=== PATIENT | male | born 1960 ===

== ENCOUNTER 2017-02-21 10:35 | Inpatient (IN) | payer MEDICAID, SELFPAY ==
--- NOTE | 2017-02-21 10:59 | ED PDOC ---
Arrival/HPI - General Time Seen by Provider: 02/21/17 10:55 Historian: Patient - History of Present Illness Narrative History of Present Illness (Text): 02/21/17 10:56 56 y/o male, pmh including dm, nkda, Last tetanus over 10 years ago, c/o rt. knee pain and swelling with redness x 3 days. Pt. stated that he tripped and fall about 3 days ago, sustained abrasion on the anterior knee, noted to have redness and swelling today, able to walk to the ER and painful rt. knee skin, no fever or chills, no night sweat, no chills, no dizziness, no chest pain or shortness of breath, no change in vision, no other medical or psychological complaints. Past Medical History - Provider Review Nursing Documentation Reviewed: Yes Family/Social History - Physician Review Nursing Documentation Reviewed: Yes Family/Social History: Unknown Family HX Allergies/Home Meds Allergies/Adverse Reactions: Allergies No Known Allergies Allergy (Verified 02/21/17 10:56) Home Medications: Home Meds Medication Instructions Recorded Confirmed Insulin Glargine,Hum.rec.anlog 20 unit SQ DAILY 02/21/17 02/21/17 [Ирина Phan U-100] Review of Systems - Review of Systems Constitutional: absent: Fatigue, Fevers Eyes: absent: Vision Changes ENT: absent: Hearing Changes Respiratory: absent: SOB, Cough Cardiovascular: absent: Chest Pain Gastrointestinal: absent: Abdominal Pain, Nausea, Vomiting Musculoskeletal: Arthralgias, Joint Swelling. absent: Back Pain, Neck Pain, Myalgias Skin: Rash, Cellulitis. absent: Pruritis Neurological: absent: Headache, Dizziness Psychiatric: absent: Anxiety, Depression Physical Exam Vital Signs Reviewed: Yes Vital Signs Temp Pulse Resp BP Pulse Ox 02/21/17 13:50 98 H 18 146/77 98 02/21/17 10:41 98.4 F 97 H 19 151/79 H 100 Temperature: Afebrile Blood Pressure: Hypertensive Pulse: Regular Respiratory Rate: Normal Appearance: Positive for: Well-Appearing, Non-Toxic, Comfortable Pain Distress: Moderate Mental Status: Positive for: Alert and Oriented X 3 - Systems Exam Head: Present: Atraumatic, Normocephalic Pupils: Present: PERRL Extroacular Muscles: Present: EOMI Conjunctiva: Present: Normal Mouth: Present: Moist Mucous Membranes Neck: Present: Normal Range of Motion Respiratory/Chest: Present: Clear to Auscultation, Good Air Exchange. No: Respiratory Distress, Accessory Muscle Use Cardiovascular: Present: Regular Rate and Rhythm, Normal S1, S2. No: Murmurs Abdomen: Present: Normal Bowel Sounds. No: Tenderness, Distention, Peritoneal Signs Back: Present: Normal Inspection Upper Extremity: Present: Normal Inspection. No: Cyanosis, Edema Lower Extremity: Present: Normal Inspection, Other (Rt. knee: visible scab ulcerated noted on the anterior knee approx. 2cm diameter with the cellulitis noted on the lateral and inferior aspect of the knee, no deformity, active range of movement, no joint limitation, no fluctuant abscess, able to visual the bony structure with no effusion, sensation intact, motor 5/5, +DPPT pulsese , capillary refill< 2 seconds, negative peace and bone sign, neurovascular intact. ). No: Edema Neurological: Present: GCS=15, Speech Normal, Motor Func Grossly Intact, Memory Normal Skin: Present: Warm, Dry, Normal Color. No: Rashes Psychiatric: Present: Alert, Oriented x 3, Normal Insight, Normal Concentration Medical Decision Making ED Course and Treatment: 02/21/17 10:59 Differrential: rt. knee cellulitis vs. gout vs. arthritis -labs/blood/urine and wound culture -rt. knee xray -RLE venuous doppler -IVF/vancomycin/zosyn/toradol/Tdap -No emergent knee rt tap indicated in the ER as per Dr. Berrios and examined the patient together, agreed on the treatment and admission plan. -Observe and reassess 02/21/17 12:58 -EKG: NSR @ 98 BPM, no ST elevation or depression, no T wave inversion. -RLE Venuous doppler: as per preliminary report, no acute DVT -Rt. knee xray: no fracture/dislocation/osteolytic changes, vascular calcification noted. -Labs are non-significant except glucose 308 (IVF ordered), Lactic acid 2.2 ( not code sepsis criteria) -Pt. will need admission for inpatient IV antiobiotic due to the extensive of the cellulitis. -Hopitalist paged. 02/21/17 13:06 -I spoke to Dr. Rabago, discussed about the case/labs/radiology results, agreed on the admission for inpatient antibiotics. -I discussed with Dr. Berrios, he will put in the admission order. - Lab Interpretations Microbiology Results: Microbiology Results 02/21/17 11:10 Skin - Knee Gram Stain - Final Lab Results: 02/21/17 11:10 02/21/17 11:10 Lab Results 02/21/17 11:10: pO2 27 L, VBG pH 7.33, VBG pCO2 53.0, VBG HCO3 27.9, VBG Total CO2 29.5 H, VBG O2 Sat (Calc) 55.0, VBG Base Excess 1.0, VBG Potassium 3.9, Sodium 139.0, Chloride 103.0, Glucose 308 H, Lactate 2.2 H, FiO2 21.0, Venous Blood Potassium 3.9 02/21/17 11:10: WBC 10.7, RBC 4.07, Hgb 11.7 L, Hct 35.0 L, MCV 86.0, MCH 28.7, MCHC 33.4, RDW 13.6, Plt Count 339, MPV 11.2 H, Gran % 73.2 H, Lymph % (Auto) 18.4 L, [place] % (Auto) 7.4 H, Eos % (Auto) 0.8 L, Baso % (Auto) 0.2, Gran # 7.81 H, Lymph # 2.0, [place] # 0.8 H, Eos # 0.1, Baso # 0.02, ESR 70 H 02/21/17 11:10: C-React Prot High Sens > 15.00 H 02/21/17 11:10: Sodium 139, Chloride 102, Potassium 3.9, Carbon Dioxide 27, Anion Gap 14, BUN 12, Creatinine 0.6 L, Est GFR ( Amer) > 60, Est GFR ( Non-Af Amer) > 60, Random Glucose 308 H*, Uric Acid 2.6 L, Calcium 9.3, Magnesium 2.0, Total Bilirubin 0.6, AST 35, ALT 31, Alkaline Phosphatase 259 H, Total Protein 8.1, Albumin 3.9, Globulin 4.2, Albumin/Globulin Ratio 0.9 L 02/21/17 10:48: POC Glucose (mg/dL) 359 H I have reviewed the lab results: Yes Interpretation: Abnormal lab values (Glucose 308, LA 2.2) - RAD Interpretation Radiology Orders: 02/21/17 11:04 KNEE W PATELLA RIGHT 3 VIEW [RAD] Stat DUPLEX LOWER EXTRM VEIN RIGHT [US] Stat 02/21/17 11:06 CHEST ONE VIEW [RAD] Stat Rt. knee xray: PROCEDURE: Right Knee Radiographs. HISTORY: rt. knee cellulitis COMPARISON: None. FINDINGS: BONES: Normal. No fracture. JOINTS: Normal. No osteoarthritis. JOINT EFFUSION: None. OTHER FINDINGS: Pre and infrapatellar soft tissue swelling. IMPRESSION: Soft tissue swelling without acute articular or osseous abnormality. Chest xray: LUNGS: Clear. PLEURA: No pneumothorax or pleural fluid seen. CARDIOVASCULAR: No radiographic findings to suggest acute or significant cardiovascular disease. OSSEOUS STRUCTURES: No significant abnormalities. VISUALIZED UPPER ABDOMEN: Normal. OTHER FINDINGS: None. IMPRESSION: No active disease. RLE Venuous doppler: as per preliminary, no acute DVT Skiver Heel Tap: Radiologist - EKG Interpretation EKG Interpretation (Text): 02/21/17 11:19 -EKG: NSR @ 98 BPM, no ST elevation or depression, no T wave inversion. Interpreted by ED Physician: Yes Type: 12 lead EKG - Medication Orders Current Medication Orders: Acetaminophen (Tylenol 325mg Tab) 650 mg PO Q6H PRN PRN Reason: Fever >100.4 F Last Admin: 02/22/17 00:50 Dose: 650 mg MAR Pain/Vitals Document 02/22/17 00:50 PCO (Rec: 02/22/17 00:50 PCO [facility] [id number] Pain Reassessment Is This A Pain ReAssessment? No Sleep Is patient sleeping during reassessment? No Presence of Pain Presence of Pain No Vitals Temperature (97.6 F-99.6 F) 101.9 F Temperature Source Oral Heparin Sodium (Porcine) (Heparin) 5,000 units SC Q12 THERESE PRN Reason: Protocol Last Admin: 02/22/17 09:49 Dose: 5,000 units Subcutaneous Administrations Document 02/22/17 09:49 ANTOALL (Rec: 02/22/17 09:49 ANTOALL [id number]) Injection Site MAR Injection Site Right Abdomen Charges for Administration # of Subcutaneous Administrations 1 Vancomycin HCl (Vancomycin 1gm) 1 gm in 250 mls @ 167 mls/hr IVPB Q12 THERESE PRN Reason: Protocol Last Admin: 02/22/17 09:48 Dose: 167 mls/hr eMAR Start Stop Document 02/22/17 09:48 ANTOALL (Rec: 02/22/17 09:49 ANTOALL [id number]) Intravenous Solution Start Date 02/22/17 Start Time 09:48 End Date 02/22/17 End time 11:18 Total Infusion Time 90 Sodium Chloride (Sodium Chloride 0.9%) 1,000 mls @ 100 mls/hr IV .Q10H [facility] Last Admin: 02/22/17 05:55 Dose: 100 mls/hr eMAR Start Stop Document 02/22/17 05:55 PCO (Rec: 02/22/17 05:56 PCO [facility] [id number]) Intravenous Solution Start Date 02/22/17 Start Time 05:55 End Date 02/22/17 End time 16:00 Total Infusion Time 605 Piperacillin Sod/Tazobactam Sod (Zosyn 3.375 In Ns 100ml) 100 mls @ 200 mls/hr IVPB Q6 THERESE PRN Reason: Protocol Stop: 03/02/17 18:01 Last Admin: 02/22/17 05:53 Dose: 200 mls/hr eMAR Start Stop Document 02/22/17 05:53 PCO (Rec: 02/22/17 05:54 PCO [facility] [id number]) Intravenous Solution Start Date 02/22/17 Start Time 05:53 End Date 02/22/17 End time 06:30 Total Infusion Time 37 Insulin Detemir (Levemir) 20 unit SC HS THERESE Last Admin: 02/21/17 22:43 Dose: 20 unit Subcutaneous Administrations Document 02/21/17 22:43 PCO (Rec: 02/21/17 22:43 PCO [facility] [id number]) Injection Site MAR Injection Site Left Deltoid Charges for Administration # of Subcutaneous Administrations 1 Insulin Human Regular (Humulin R Med) 0 units SC AC THERESE PRN Reason: Protocol Last Admin: 02/22/17 09:45 Dose: Not Given Non-Admin Reason: Blood Sugar Parameter Pantoprazole Sodium (Protonix Ec Tab) 40 mg PO 0600 THERESE Last Admin: 02/22/17 06:02 Dose: 40 mg Tramadol HCl (Ultram) 50 mg PO TID PRN PRN Reason: Pain, severe (8-10) Discontinued Medications Sodium Chloride (Sodium Chloride 0.9%) 1,000 mls @ 100 mls/hr IV .Q10H THERESE Vancomycin HCl (Vancomycin 1gm) 1 gm in 250 mls @ 167 mls/hr IVPB STAT STA PRN Reason: Protocol Stop: 02/21/17 12:33 Last Admin: 02/21/17 12:24 Dose: 167 mls/hr eMAR Start Stop Document 02/21/17 12:24 ND (Rec: 02/21/17 12:24 ND [facility] [id number]) Intravenous Solution Start Date 02/21/17 Start Time 12:24 End Date 02/21/17 End time 14:00 Total Infusion Time 96 Piperacillin Sod/Tazobactam Sod (Zosyn 3.375 In Ns 100ml) 100 mls @ 200 mls/hr IVPB STAT STA PRN Reason: Protocol Stop: 02/21/17 11:33 Last Admin: 02/21/17 11:35 Dose: 200 mls/hr eMAR Start Stop Document 02/21/17 11:35 ND (Rec: 02/21/17 11:35 ND [facility] [id number]) Intravenous Solution Start Date 02/21/17 Start Time 11:35 End Date 02/21/17 End time 12:05 Total Infusion Time 30 Sodium Chloride (Sodium Chloride 0.9%) 1,000 mls @ 500 mls/hr IV .Q2H THERESE Last Admin: 02/21/17 11:32 Dose: 500 mls/hr eMAR Start Stop Document 02/21/17 11:32 ND (Rec: 02/21/17 11:33 ND [facility] [id number]) Intravenous Solution Start Date 02/21/17 Start Time 11:32 End Date 02/21/17 End time 12:32 Total Infusion Time 60 Ketorolac Tromethamine (Toradol) 30 mg IVP STAT STA Stop: 02/21/17 11:05 Last Admin: 02/21/17 11:29 Dose: 30 mg MAR Pain Assessment Document 02/21/17 11:29 ND (Rec: 02/21/17 11:29 ND [facility] [id number]) Pain Reassessment Is this a pain reassessment? No Sleep Is patient sleeping during reassessment? No Presence of Pain Presence of Pain Yes Pain Scale Used Pain Scale Used Numeric Location Left, Right or Bilateral Right Pain Location Body Site Knee Description Description Acute IVP Administration Document 02/21/17 11:29 ND (Rec: 02/21/17 11:29 ND [facility] [id number]) Charges for Administration # of IVP Administrations 1 Tetanus/Reduced Diphtheria/Acell Pertussis (Boostrix Vaccine Inj) 0.5 ml IM .ONCE ONE Stop: 02/21/17 11:12 Last Admin: 02/21/17 11:33 Dose: 0.5 ml MAR Immunization Data Document 02/21/17 11:33 ND (Rec: 02/21/17 11:33 ND [facility] [id number]) Immunization Data Vaccine Information Sheet Given Yes Immunization Registry Document 02/21/17 11:33 ND (Rec: 02/21/17 11:33 ND [facility] [id number]) Immunization Registry Consent Date 02/21/17 - 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 MD/DO has examined the patient and agrees with the treatment plan. Disposition/Present on Arrival - Present on Arrival Any Indicators Present on Arrival: No History of DVT/PE: No History of Uncontrolled Diabetes: No Urinary Catheter: No History of Decub. Ulcer: No - Disposition Have Diagnosis and Disposition been Completed?: Yes Diagnosis: Cellulitis of knee, right, Abrasion Disposition: HOSPITALIZED Disposition Time: 12:59 Patient Plan: Admission Patient Problems: Current Active Problems Problem Status Onset Cellulitis of knee, right Acute Abrasion Acute Condition: STABLE
[2017-02-21] MEDS ORDERED: Vancomycin 1gm in NS 250ml 1 GM/250 ML BAG IVPB STA (11:04)
[2017-02-21] MEDS ORDERED: Piperacillin/Tazobact 3.375 gm 100 ML IVPB STA (11:04)
[2017-02-21] MEDS ORDERED: TDAP Vaccine 0.5 mL Syr IM ONE (11:11)
[2017-02-21] MEDS ORDERED: Sodium Chloride 0.9% 1,000 ML IV SCH ×2 (11:15→11:18)
[2017-02-21 11:27] LABS: BASO # 0.02 K/mm3 (0.0-2.0); BASO % 0.2 % (0.0-3.0); EOS # 0.1 (0.0-0.7); EOS % 0.8 % (1.5-5.0); GRAN # 7.81 (1.4-6.5); GRAN % 73.2 % (50.0-68.0); HEMOGLOBIN 11.7 g/dL (14.0-18.0); LYMPH % 18.4 % (22.0-35.0); MEAN CORPUSCULAR HEMOGLOBIN 28.7 pg (25.0-35.0); MEAN CORPUSCULAR HGB CONC 33.4 g/dl (31.0-37.0); MEAN PLATELET VOLUME 11.2 fl (7.0-11.0); MONO # 0.8 (0.1-0.6); MONO % 7.4 % (1.0-6.0); RBC 4.07 10^6/uL (3.5-6.1); RED CELL DISTRIBUTION WIDTH 13.6 % (11.5-14.5); WHITE BLOOD COUNT 10.7 10^3/ul (4.5-11.0)
[2017-02-21 11:51] LABS: ALB/GLOB RATIO 0.9 (1.1-1.8); ALBUMIN 3.9 g/dL (3.0-4.8); ALT/SGPT 31 U/L (7-56); AST/SGOT 35 U/L (17-59); BLOOD UREA NITROGEN 12 mg/dL (7-21); CALCIUM 9.3 mg/dL (8.4-10.5); GFR AFRICAN-AMERICAN > 60; GFR NON-AFRICAN AMERICAN > 60; URIC ACID 2.6 mg/dL (3.5-8.5)
[2017-02-21 11:52] LABS: VENOUS BLOOD GAS PO2 27 mm/Hg (30-55); VENOUS BLOOD PH 7.33 (7.32-7.43)
--- NOTE | 2017-02-21 13:52 | RAD ---
PROCEDURE: CHEST RADIOGRAPH, 1 VIEW HISTORY: medical clearance COMPARISON: None available. FINDINGS: LUNGS: Clear. PLEURA: No pneumothorax or pleural fluid seen. CARDIOVASCULAR: No radiographic findings to suggest acute or significant cardiovascular disease. OSSEOUS STRUCTURES: No significant abnormalities. VISUALIZED UPPER ABDOMEN: Normal. OTHER FINDINGS: None. IMPRESSION: No active disease. Concordant results with the preliminary interpretation rendered by the emergency department physician procedure.
--- NOTE | 2017-02-21 13:53 | RAD ---
PROCEDURE: Right Knee Radiographs. HISTORY: rt. knee cellulitis COMPARISON: None. FINDINGS: BONES: Normal. No fracture. JOINTS: Normal. No osteoarthritis. JOINT EFFUSION: None. OTHER FINDINGS: Pre and infrapatellar soft tissue swelling. IMPRESSION: Soft tissue swelling without acute articular or osseous abnormality. Concordant results with the preliminary interpretation rendered by the emergency department physician procedure.
[2017-02-21 14:07] LABS: URINE BILIRUBIN NEGATIVE (NEGATIVE); URINE BLOOD NEGATIVE (NEGATIVE); URINE GLUCOSE (UA) >=1000 mg/dL (NEGATIVE); URINE LEUKOCYTE ESTERASE NEGATIVE Leu/uL (NEGATIVE); URINE NITRATE NEGATIVE (NEGATIVE); URINE PROTEIN NEGATIVE mg/dL (<30 mg/dL)
[2017-02-21 14:08] LABS: URINE APPEARANCE CLEAR (CLEAR); URINE COLOR YELLOW (YELLOW)
--- NOTE | 2017-02-21 14:37 | CP.PCM.HP ---
History of Present Illness - History of Present Illness History of Present Illness: Chief Complaint: Right knee pain HPI: Patient is a 56 year old male with a past medical history of IDDM who presents with complaints of right knee pain after falling. Patient states that three days ago in the afternoon he was moving around in the attic in his brother's house where he lives just putting things away and folding clothes and made the wrong turn which resulted in him falling and hitting his knee on the floor. Patient state's he didn't think much of the fall and just decided to borrow voltaren gel and use it at that moment. He states when he woke up the next morning he noted that his right knee was more erythematous and swollen. Patient states this worsened through the day but had no one to take him to the hospital. He took two advil in attempts to control the pain. States pain was more relieved with voltaren gel than with advil. By the following morning, today , patient states the erythema and swelling had increased twice the original amount. Patient characterizes the pain as sharp describes it as lasting all day except for when he is about to sleep and has his legs elevated. Rates the pain a 10/10 prior to being admitted, and a 7/10 after administration of toradol. As per patient the pain radiates from knee to the middle of the calf. Exacerbating factors include attempting to move his leg in any direction. Patient endorses inability to turn his leg, which is an issue for him considering he lives in the attic of his house. Patient denies recent travel, contact with domestic/ wild animals, nausea, vomiting, diarrhea, abdominal pain, fevers, chills, cough. PMD: Dr. 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 Dexter Rojas. Patient is from his , has children but lives with his cousin in the attic. States he has sexual relations with his girlfriend for which he always uses protection. Family History: Diabetes Mellitus: grandparents, aunts, uncles Allergies: No known drug allergies Social History: Denies tobacco, alcohol, or illicit drug use Labs on admission: WBC 10.7, Hemoglobin 11.7 and Hematocrit 35.0, Glucose 308, Lactate 2.2, Sodium 139, Potasium 3.9, Carbon dioxide 27, Anion gap 14, BUN 12, Creatinine 0.6, Uric acid 2.6, Alkaline phosphatase 259 Chest X-Ray: no acute abnormalities Right Knee X-Ray: negative for fractures, osteoarthritis. Positive for pre and infrapatellar soft tissue swelling withou tacute articular or osseous abnormality. Right lower extremity CT scan: negative study for fracture. Satisfactory visualization distal femur, patella, proximal tibia and fibula. soft tissue swelling about the right knee, diffuse. Small suprapaterllar joint effusion. No evidence of loose body, no evidence of compartment syndrome. Extremity ultrasound: pending Present on Admission - Present on Admission Any Indicators Present on Admission: Yes Review of Systems - Review of Systems Systems not reviewed;Unavailable: Acuity of Condition - Constitutional Constitutional: absent: Chills, Fever, Headache, Lethargy, Night Sweats - EENT Eyes: absent: Blurred Vision, Change in Vision Nose/Mouth/Throat: absent: Nasal Congestion, Nasal Discharge - Cardiovascular Cardiovascular: absent: Chest Pain, Dyspnea - Respiratory Respiratory: absent: Cough, Dyspnea - Gastrointestinal Gastrointestinal: absent: Abdominal Pain, Diarrhea, Nausea, Vomiting - Musculoskeletal Musculoskeletal: Radiating Pain into Limb. absent: Arthralgias, Back Pain, Myalgias, Numbness - Neurological Neurological: absent: Abnormal Gait, Dizziness, Vertigo - Psychiatric Psychiatric: absent: Anxiety, Depression Past Patient History - Infectious Disease Hx of Infectious Diseases: None - Past Social History Smoking Status: Never Smoked - CARDIAC Hx Cardiac Disorders: No - PULMONARY Hx Respiratory Disorders: No - NEUROLOGICAL Hx Neurological Disorder: No - HEENT Hx HEENT Problems: No - RENAL Hx Chronic Kidney Disease: No - ENDOCRINE/METABOLIC Hx Endocrine Disorders: Yes Hx Diabetes Mellitus Type 1: Yes Hx Diabetes Mellitus Type 2: Yes - HEMATOLOGICAL/ONCOLOGICAL Hx Blood Disorders: No - INTEGUMENTARY Hx Dermatological Problems: No - MUSCULOSKELETAL/RHEUMATOLOGICAL Hx Musculoskeletal Disorders: Yes Hx Fractures: Yes (Left 5th Metatarsal) - GASTROINTESTINAL Hx Gastrointestinal Disorders: No - GENITOURINARY/GYNECOLOGICAL Hx Genitourinary Disorders: No - PSYCHIATRIC Hx Psychophysiologic Disorder: No Hx Substance Use: No - SURGICAL HISTORY Hx Surgeries: Yes Other/Comment: Left 5th digit amputation - ANESTHESIA Hx Anesthesia: Yes Hx Anesthesia Reactions: No Hx Malignant Hyperthermia: No Meds Allergies/Adverse Reactions: Allergies Allergy/AdvReac Type Severity Reaction Status Date / Time No Known Allergies Allergy Verified 02/21/17 10:56 Physical Exam - Constitutional Appears: Non-toxic, No Acute Distress - Head Exam Head Exam: ATRAUMATIC, NORMAL INSPECTION, NORMOCEPHALIC - Eye Exam Eye Exam: EOMI, Normal appearance - ENT Exam ENT Exam: Mucous Membranes Moist, Normal Exam - Respiratory Exam Respiratory Exam: Clear to Auscultation Bilateral, NORMAL BREATHING PATTERN. absent: Rhonchi, Wheezes - Cardiovascular Exam Cardiovascular Exam: REGULAR RHYTHM, +S1, +S2 - GI/Abdominal Exam GI & Abdominal Exam: Normal Bowel Sounds, Soft - Extremities Exam Extremities exam: Negative for: normal inspection - Expanded Lower Extremities Exam Left Lower Leg Exam: abrasion. absent: normal inspection Ankle exam: abrasion Foot/Toe exam: amputation (5th metarsal) Neuro vacular tendon exam: absent: significant pain with passive ROM of distal joint Right Knee exam: abrasion, erythema, swelling, tenderness. absent: crepitus, full knee extension, full ROM, normal inspection Lower Leg Exam: abrasion, erythema, swelling. absent: normal inspection, tenderness Foot/Toe exam: erythema, swelling Neuro vacular tendon exam: significant pain with passive ROM of distal joint. absent: extremity cold to touch, foot drop, motor deficit, pulse deficit - Back Exam Back exam: absent: NORMAL INSPECTION Additional comments: healed wound on right lower quadrant - Neurological Exam Neurological exam: Alert, CN II-XII Intact, Oriented x3 - Psychiatric Exam Psychiatric exam: Normal Affect, Normal Mood - Skin Skin Exam: Intact, Normal Color, Warm Results - Vital Signs Recent Vital Signs: Last Vital Signs Temp 98.4 F 02/21/17 10:41 Pulse 98 H 02/21/17 13:50 Resp 18 02/21/17 13:50 BP 146/77 02/21/17 13:50 Pulse Ox 98 02/21/17 13:50 - Labs Result Diagrams: 02/21/17 11:10 02/21/17 11:10 Labs: Laboratory Results - last 24 hr 02/21/17 14:00 Urine Color Yellow Urine Appearance Clear Urine pH 6.0 Ur Specific [place] 1.020 Urine Protein Negative Urine Glucose (UA) >=1000 Urine Ketones Negative Urine Blood Negative Urine Nitrate Negative Urine Bilirubin Negative Urine Urobilinogen 2.0 H Ur Leukocyte Esterase Negative Assessment & Plan - Assessment and Plan (Free Text) Assessment: 56 year old male with a past medical history of IDDM II, 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 Plan: 1. Right knee swelling due to cellulitis vs. septic joint arthritis - Follow up with morning labs; CBC, BMP, PT, PTT - HIV Ag/Ab 4th gen ordered; results pending - ESR, CRP, Procalcitonin ordered; results pending - Initiral VBG showed a lactate of 2.2, repeat lactate 0.9 - Blood/Wound/Urine cultures ordered; results pending - Infectious disease consulted; recs appreciated - Orthopedic surgery consulted; recs appreciated - Vancomycin, Zosyn for antiobiotic reigmen - Tramadol for pain control - IVF@ 100 2. IDDM - Insulin Levemir 20 units SC HS - Insulin human regular-MED - Monitor glucose levels
[2017-02-21 15:18] LABS: VENOUS BLOOD GAS PO2 43 mm/Hg (30-55); VENOUS BLOOD PH 7.43 (7.32-7.43)
--- NOTE | 2017-02-21 15:33 | CT ---
PROCEDURE: CT right knee HISTORY: Posttraumatic knee pain COMPARISON: February 21, 2017. Plain film radiographs right knee TECHNIQUE: 2.5 mm axial acquisition and display. Coronal and sagittal reconstructions. Dose report (mGy-cm): 358.[address] exam was performed using one or more of the following dose reduction techniques: Automated exposure control, adjustment of the mA and/or kV according to patient size, and/or use of iterative reconstruction technique. FINDINGS: Negative study for fracture. Satisfactory visualization distal femur, patella, proximal tibia and fibula. Soft tissue swelling about the right knee, diffuse. Small suprapatellar joint effusion. No evidence of loose body. No evidence of compartment syndrome. No evidence of subluxation or dislocation. Incidental finding(s): And diffuse vascular calcifications IMPRESSION: Soft tissue swelling without acute articular or osseous abnormality.
[2017-02-21] MEDS: Sodium Chloride 0.9% 1,000 ML IV SCH (15:49)
[2017-02-21] MEDS: Insulin Reg-MEDIUM-Coverage SC SCH (16:54)
[2017-02-21] MEDS: Piperacillin/Tazobact 3.375 gm 100 ML IVPB SCH ×2 (17:04→23:23)
[2017-02-21] MEDS ORDERED: Piperacillin/Tazobact 3.375 gm 100 ML IVPB SCH (18:00)
[2017-02-21] MEDS: Vancomycin 1gm in NS 250ml 1 GM/250 ML BAG IVPB SCH (21:23)
--- NOTE | 2017-02-21 21:24 | US ---
PROCEDURE: Right lower extremity venous US HISTORY: Leg pain and swelling. Evaluate for DVT. PHYSICIAN(S): Jasbir Mahajan M.D. TECHNIQUE: Duplex sonography and color-flow Doppler with graded compression were used to evaluate the deep venous system of the right lower extremity. FINDINGS: The visualized deep venous system of the right lower extremity is sonographically normal and compressible. Normal waveforms and augmentation are seen. There is no sonographic evidence for deep venous thrombosis in the visualized segments of the right lower extremity. IMPRESSION: 1. No sonographic evidence for deep venous thrombosis in the visualized segments of the right lower extremity.
[2017-02-21] MEDS: Insulin Detemir 100 units/ml Vial (Levemir) SC SCH (22:43)
--- NOTE | 2017-02-22 02:55 | CON ---
DATE: 02/21/2017 The patient is in bed 60. CHIEF COMPLAINT: Right knee pain x3 days. HISTORY OF PRESENT ILLNESS: This is a 56-year-old [place] male with diabetes mellitus, left fifth toe amputation and history, who was admitted after falling on his right knee with erythema and pain, low grade fevers. PAST MEDICAL HISTORY: Significant for diabetes mellitus. PAST SURGICAL HISTORY: Left first toe amputation. ALLERGIES: PATIENT HAS NO KNOWN ALLERGIES. MEDICATIONS AT HOME: Include insulin. PHYSICAL EXAMINATION: VITAL SIGNS: Temperature is 100 and heart rate of 97, respiratory rate of 20. Examination of the blood pressure is 140/70. HEENT: Unremarkable. NECK: Supple. LUNGS: Decreased breath sounds. HEART: Normal S1, S2. ABDOMEN: Soft, nontender. LABORATORY EXAMINATION: Reveals a white count of 10,000, hemoglobin of 11, and platelets of 339. Chemistries reveals a BUN of 12, creatinine of 0.6, glucose of 308, alk phos is 259. Urinalysis reveals and the patient had a CT scan of the knee, there is no synovial fluid is noted and chest x-ray is negative. Examination of the knee reveals erythema that appears to be the injury site on the knee. He is unable to fully extend and of flex the knee joint; however, it is because of the knee pain he is having. ASSESSMENT AND PLAN: This is a 56-year-old [place] male who is diabetic with a right knee cellulitis, status post fall in his apartment in the attic, must rule out aseptic joint. We will treat the patient with vancomycin, Zosyn and waiting for orthopedic for synovial fluid and we will check on the culture results. Wound culture and blood cultures were recommend, HIV, C-reactive protein, and we will also order a procalcitonin and a sed rate. Daniel Matute MD
[2017-02-22] MEDS: Piperacillin/Tazobact 3.375 gm 100 ML IVPB SCH ×4 (05:53→23:27)
[2017-02-22] MEDS: Sodium Chloride 0.9% 1,000 ML IV SCH ×3 (05:55→23:27)
[2017-02-22] MEDS: Pantoprazole 40 mg EC Tab PO SCH (06:02)
[2017-02-22 07:02] LABS: HEMOGLOBIN 9.9 g/dL (14.0-18.0); MEAN CELL VOLUME 86.2 fl (80.0-105.0); MEAN CORPUSCULAR HGB CONC 32.5 g/dl (31.0-37.0); MEAN PLATELET VOLUME 10.6 fl (7.0-11.0); RBC 3.54 10^6/uL (3.5-6.1); RED CELL DISTRIBUTION WIDTH 13.7 % (11.5-14.5); WHITE BLOOD COUNT 9.4 10^3/ul (4.5-11.0)
[2017-02-22 07:53] LABS: BLOOD UREA NITROGEN 9 mg/dL (7-21); CALCIUM 8.5 mg/dL (8.4-10.5); GFR AFRICAN-AMERICAN > 60; GFR NON-AFRICAN AMERICAN > 60
[2017-02-22 08:30] LABS: INR 1.26 (0.93-1.08); PARTIAL THROMBOPLASTIN TIME 33.8 Seconds (25.1-36.5); PROTHROMBIN TIME 13.9 SECONDS (9.4-12.5)
--- NOTE | 2017-02-22 08:37 | CARD ---
APPROVED REPORT EKG Measurement Heart [id number] <Conclusion> Normal sinus rhythm Normal ECG
[2017-02-22] MEDS: Insulin Reg-MEDIUM-Coverage SC SCH ×3 (09:45→17:47)
[2017-02-22] MEDS: Vancomycin 1gm in NS 250ml 1 GM/250 ML BAG IVPB SCH ×2 (09:48→21:33)
--- NOTE | 2017-02-22 12:25 | CP.PCM.PN ---
<Sheila Turner - Last Filed: 02/22/17 12:22> Subjective - Date & Time of Evaluation Date of Evaluation: 02/22/17 Time of Evaluation: 08:00 - Subjective Subjective: PGY2 Medicine note for Dr. Lane Patient seen and examined at bedside. Nursing reported patient had temp 101.9F at midnight overnight. Patient stated he was able to sleep through the night and pain medications were effective. He still reports pain with movement but reports the swelling and discolored area has improved slightly. Nurse applied warm compresses to the region this AM which seemed to help patient. Denied acute complaints of chills, headache, dizziness, chest pain, palpitations, SOB, cough, abd pain, nausea, vomiting, bowel/bladder complaints. He admits to decreased ROM of RLE secondary to pain. Patient is ambulating from bed to bathroom. Objective - Vital Signs/Intake and Output Vital Signs (last 24 hours): Temp Pulse Resp BP Pulse Ox 98.6 F 78 18 124/70 98 02/22/17 08:00 02/22/17 08:00 02/22/17 08:00 02/22/17 08:00 02/22/17 08:00 Intake and Output: 02/22/17 02/22/17 06:59 18:59 Intake Total 2520 Balance 2520 - Medications Medications: Current Medications Acetaminophen (Tylenol 325mg Tab) 650 mg PO Q6H PRN PRN Reason: Fever >100.4 F Last Admin: 02/22/17 00:50 Dose: 650 mg Heparin Sodium (Porcine) (Heparin) 5,000 units SC Q12 [facility] PRN Reason: Protocol Last Admin: 02/22/17 09:49 Dose: 5,000 units Vancomycin HCl (Vancomycin 1gm) 1 gm in 250 mls @ 167 mls/hr IVPB Q12 [facility] PRN Reason: Protocol Last Admin: 02/22/17 09:48 Dose: 167 mls/hr Sodium Chloride (Sodium Chloride 0.9%) 1,000 mls @ 100 mls/hr IV .Q10H [facility] Last Admin: 02/22/17 05:55 Dose: 100 mls/hr Piperacillin Sod/Tazobactam Sod (Zosyn 3.375 In Ns 100ml) 100 mls @ 200 mls/hr IVPB Q6 [facility] PRN Reason: Protocol Stop: 03/02/17 18:01 Last Admin: 02/22/17 12:14 Dose: 200 mls/hr Insulin Detemir (Levemir) 20 unit SC [facility] Last Admin: 02/21/17 22:43 Dose: 20 unit Insulin Human Regular (Humulin R Med) 0 units SC AC [facility] PRN Reason: Protocol Last Admin: 02/22/17 12:13 Dose: 1 units Pantoprazole Sodium (Protonix Ec Tab) 40 mg PO 0600 [facility] Last Admin: 02/22/17 06:02 Dose: 40 mg Tramadol HCl (Ultram) 50 mg PO TID PRN PRN Reason: Pain, severe (8-10) - Labs Labs: 02/22/17 06:45 02/22/17 06:45 PT 13.9 SECONDS (9.4-12.5) H 02/22/17 05:00 INR 1.26 (0.93-1.08) H 02/22/17 05:00 APTT 33.8 Seconds (25.1-36.5) 02/22/17 05:00 - Constitutional Appears: Non-toxic, No Acute Distress - Head Exam Head Exam: ATRAUMATIC, NORMAL INSPECTION, NORMOCEPHALIC - Eye Exam Eye Exam: EOMI, Normal appearance, PERRL. absent: Conjunctival injection, Scleral icterus Pupil Exam: NORMAL ACCOMODATION - ENT Exam ENT Exam: Mucous Membranes Moist - Neck Exam Neck Exam: Full ROM, Normal Inspection. absent: Lymphadenopathy, Tenderness - Respiratory Exam Respiratory Exam: Clear to Ausculation Bilateral, NORMAL BREATHING PATTERN. absent: Accessory Muscle Use, Rales, Rhonchi, Wheezes, Respiratory Distress - Cardiovascular Exam Cardiovascular Exam: REGULAR RHYTHM, RRR, +S1, +S2. absent: Murmur - GI/Abdominal Exam GI & Abdominal Exam: Soft, Normal Bowel Sounds. absent: Firm, Guarding, Rigid, Tenderness - Extremities Exam Extremities Exam: Tenderness (R patella). absent: Pedal Edema Additional comments: L fifth metatarsal amputation RLE: fluctuant and ecchymotic area noted around R patella- tender to palpation pulses present b/l and sensation intact b/l - Neurological Exam Neurological Exam: Alert, Awake, Oriented x3 - Psychiatric Exam Psychiatric exam: Normal Affect, Normal Mood - Skin Skin Exam: Dry, Warm Assessment and Plan - Assessment and Plan (Free Text) Assessment: 56yo male PMHx IDDM II, 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 Admitted to med/surg for R knee cellulitis Plan: R knee cellulitis - as per Ortho likely secondary to fall and carbuncle in septic knee - R patella x-ray: soft tissue swelling without acute articular/osseous abnormality - RLE CT w/o contrast: soft tissue swelling without acute articular/osseous abnormality - U/S: negative for DVT in RLE - blood culture prelim neg x 2 - urine culture: final neg - wound culture : prelim gram + cocci [await final results] - Initial VBG showed a lactate of 2.2, repeat lactate 0.9 - ESR 70 --> 120 - CRP > 15 - Procalcitonin pending - Warm compresses on affected area - Tylenol 650mg po q6 prn temp - Zosyn and Vanc Day 2 - Ultram for pain - ID: Dr Matute on board - Ortho: Dr. Jesus on board IDDM - Levemir 20U sc hs - RISS medium - Accucheck Diet: heart healthy mod consistent carb Fluids: NS @ 100cc/hr GI ppx: Protonix 40mg po qd DVT ppx: Heparin 5000u sc q[address] Ariana Turner PGY2 <Matt Lane - Last Filed: 02/22/17 17:16> Objective - Vital Signs/Intake and Output Vital Signs (last 24 hours): Temp Pulse Resp BP Pulse Ox 98.6 F 78 18 124/70 98 02/22/17 08:00 02/22/17 08:00 02/22/17 08:00 02/22/17 08:00 02/22/17 08:00 Intake and Output: 02/22/17 02/22/17 06:59 18:59 Intake Total 2520 Balance 2520 - Medications Medications: Current Medications Acetaminophen (Tylenol 325mg Tab) 650 mg PO Q6H PRN PRN Reason: Fever >100.4 F Last Admin: 02/22/17 00:50 Dose: 650 mg Heparin Sodium (Porcine) (Heparin) 5,000 units SC Q12 [facility] PRN Reason: Protocol Last Admin: 02/22/17 09:49 Dose: 5,000 units Vancomycin HCl (Vancomycin 1gm) 1 gm in 250 mls @ 167 mls/hr IVPB Q12 [facility] PRN Reason: Protocol Last Admin: 02/22/17 09:48 Dose: 167 mls/hr Sodium Chloride (Sodium Chloride 0.9%) 1,000 mls @ 100 mls/hr IV .Q10H [facility] Last Admin: 02/22/17 05:55 Dose: 100 mls/hr Piperacillin Sod/Tazobactam Sod (Zosyn 3.375 In Ns 100ml) 100 mls @ 200 mls/hr IVPB Q6 [facility] PRN Reason: Protocol Stop: 03/02/17 18:01 Last Admin: 02/22/17 12:14 Dose: 200 mls/hr Insulin Detemir (Levemir) 20 unit SC HS [facility] Last Admin: 02/21/17 22:43 Dose: 20 unit Insulin Human Regular (Humulin R Med) 0 units SC AC [facility] PRN Reason: Protocol Last Admin: 02/22/17 12:13 Dose: 1 units Pantoprazole Sodium (Protonix Ec Tab) 40 mg PO 0600 [facility] Last Admin: 02/22/17 06:02 Dose: 40 mg Tramadol HCl (Ultram) 50 mg PO TID PRN PRN Reason: Pain, severe (8-10) - Labs Labs: 02/22/17 06:45 02/22/17 06:45 PT 13.9 SECONDS (9.4-12.5) H 02/22/17 05:00 INR 1.26 (0.93-1.08) H 02/22/17 05:00 APTT 33.8 Seconds (25.1-36.5) 02/22/17 05:00 Attending/Attestation - Attestation I have personally seen and examined this patient.: Yes I have fully participated in the care of the patient.: Yes I have reviewed all pertinent clinical information, including history, physical exam and plan: Yes Notes (Text): I have seen and examined the patient at bedside. Agree with the above note with the following additions/ exceptions: Briefly this is 56 year male with history of IDDM 2, left 5th metatarsal amputation who came for evaluation of painful swelling of right knee s/p fall. Admitted to med/surg for R knee cellulitis. Ortho eval appreciated. Cellulitis is secondary to fall and carbuncle in septic knee. Continue zosyn. ID on board. Continue levemir. Upon discharge will follow up with Dr Botello. Dr Matt Lane
[2017-02-22] MEDS: Insulin Detemir 100 units/ml Vial (Levemir) SC SCH (21:32)
--- NOTE | 2017-02-22 23:08 | PN ---
DATE: 02/22/2017 SUBJECTIVE: The patient is in bed, in no acute distress, was seen earlier this morning in 573, bed 1. PHYSICAL EXAMINATION: VITAL SIGNS: Temperature is 98, T-max is 101.9, respiratory rate of 18, heart rate of 92. HEENT: Unremarkable. NECK: Supple. LUNGS: Decreased breath sounds. HEART: Normal S1 and S2. ABDOMEN: Soft. LABORATORY DATA: Reveals white count is 9. Sed rate is 120. Chemistries are noted. Procalcitonin 0.05. Creatinine is 0.6. Urinalysis is noted. Microbiology reveals a Gram-positive cocci from the skin culture. Blood cultures are negative. Urine cultures are negative. Review of orders reveals the patient to be on vancomycin and Zosyn. ASSESSMENT AND PLAN: This is a 56-year-old Citizen Of [place] male, who is diabetic with a right knee cellulitis after falling on his knee, must rule out septic joint. The patient had a CAT scan of his lower extremity of the knee. Awaiting for Orthopedic input. Daniel Matute MD
[2017-02-23] MEDS: Piperacillin/Tazobact 3.375 gm 100 ML IVPB SCH ×2 (05:35→13:02)
[2017-02-23] MEDS: Sodium Chloride 0.9% 1,000 ML IV SCH (05:36)
[2017-02-23] MEDS: Pantoprazole 40 mg EC Tab PO SCH (05:36)
[2017-02-23 07:15] LABS: BASO # 0.02 K/mm3 (0.0-2.0); BASO % 0.3 % (0.0-3.0); EOS # 0.1 (0.0-0.7); EOS % 1.8 % (1.5-5.0); GRAN # 5.61 (1.4-6.5); GRAN % 71.4 % (50.0-68.0); HEMOGLOBIN 9.6 g/dL (14.0-18.0); LYMPH # 1.3 (1.2-3.4); LYMPH % 16.2 % (22.0-35.0); MEAN CELL VOLUME 84.8 fl (80.0-105.0); MEAN CORPUSCULAR HEMOGLOBIN 28.2 pg (25.0-35.0); MEAN CORPUSCULAR HGB CONC 33.2 g/dl (31.0-37.0); MEAN PLATELET VOLUME 10.5 fl (7.0-11.0); MONO # 0.8 (0.1-0.6); MONO % 10.3 % (1.0-6.0); RBC 3.41 10^6/uL (3.5-6.1); RED CELL DISTRIBUTION WIDTH 13.6 % (11.5-14.5); WHITE BLOOD COUNT 7.9 10^3/ul (4.5-11.0)
--- NOTE | 2017-02-23 08:49 | CON ---
DATE: 02/22/2017 ORTHOPEDIC CONSULT HISTORY OF PRESENT ILLNESS: The patient is in room 573, bed 1 with a history of bleeding his right knee several days ago, developing an eschar and it appears to have a carbuncle of his prepatellar region. Right knee x-ray showed no evidence of significant effusion. No history of fracture on the x-rays, but feels though he has early carbuncle to the right knee that needs warm compresses and antibiotic and once it forms a head we could may be pop it and get rid of the core of the abscess and this should help take care of it. on the antibiotics, we will change, he is going to get his septic bursa, but there is no fluid to aspirate at this time. I have to wait until organizes with the help of the warm compresses and then remove the core at the bedside. FINAL DIAGNOSIS: Abscess prepatellar region, right knee, to be treated with antibiotics and observation. Jerrod Jesus DO
[2017-02-23 09:04] LABS: ALB/GLOB RATIO 0.8 (1.1-1.8); ALBUMIN 2.9 g/dL (3.0-4.8); ALT/SGPT 47 U/L (7-56); AST/SGOT 35 U/L (17-59); BLOOD UREA NITROGEN 9 mg/dL (7-21); CALCIUM 8.3 mg/dL (8.4-10.5); GFR AFRICAN-AMERICAN > 60; GFR NON-AFRICAN AMERICAN > 60
--- NOTE | 2017-02-23 09:12 | CP.PCM.PN ---
<Farooq Farooq - Last Filed: 02/23/17 16:33> Subjective - Date & Time of Evaluation Date of Evaluation: 02/23/17 Time of Evaluation: 07:15 - Subjective Subjective: Patient seen and examined at bedside in no acute distress. Patient states his oral pain medication manages his pain well. Is aware of plan with continuing antibiotics as well as orthopedic's plan. Denies chest pain, abdominal pain, nausea, vomiting, diarrhea. Objective - Vital Signs/Intake and Output Vital Signs (last 24 hours): Temp Pulse Resp BP Pulse Ox 99.0 F 67 20 123/70 98 02/23/17 08:25 02/23/17 08:25 02/23/17 08:25 02/23/17 08:25 02/23/17 08:25 Intake and Output: 02/23/17 02/23/17 06:59 18:59 Intake Total 4760 Balance 4760 - Medications Medications: Current Medications Acetaminophen (Tylenol 325mg Tab) 650 mg PO Q6H PRN PRN Reason: Fever >100.4 F Last Admin: 02/22/17 23:21 Dose: 650 mg Heparin Sodium (Porcine) (Heparin) 5,000 units SC Q12 [facility] PRN Reason: Protocol Last Admin: 02/22/17 21:33 Dose: 5,000 units Vancomycin HCl (Vancomycin 1gm) 1 gm in 250 mls @ 167 mls/hr IVPB Q12 [facility] PRN Reason: Protocol Last Admin: 02/22/17 21:33 Dose: 167 mls/hr Sodium Chloride (Sodium Chloride 0.9%) 1,000 mls @ 100 mls/hr IV .Q10H REPLACED BY [facility] Last Admin: 02/23/17 05:36 Dose: 100 mls/hr Piperacillin Sod/Tazobactam Sod (Zosyn 3.375 In Ns 100ml) 100 mls @ 200 mls/hr IVPB Q6 [facility] PRN Reason: Protocol Stop: 03/02/17 18:01 Last Admin: 02/23/17 05:35 Dose: 200 mls/hr Insulin Detemir (Levemir) 20 unit SC HS [facility]PL[facility]ED [facility] Last Admin: 02/22/17 21:32 Dose: 20 unit Insulin Human Regular (Humulin R Med) 0 units SC AC [facility] PRN Reason: Protocol Last Admin: 02/22/17 17:47 Dose: Not Given Pantoprazole Sodium (Protonix Ec Tab) 40 mg PO 0600 [facility] Last Admin: 02/23/17 05:36 Dose: 40 mg Tramadol HCl (Ultram) 50 mg PO TID PRN PRN Reason: Pain, severe (8-10) Last Admin: 02/22/17 23:32 Dose: 50 mg - Labs Labs: 02/23/17 07:00 02/23/17 07:30 PT 13.9 SECONDS (9.4-12.5) H 02/22/17 05:00 INR 1.26 (0.93-1.08) H 02/22/17 05:00 APTT 33.8 Seconds (25.1-36.5) 02/22/17 05:00 - Constitutional Appears: Non-toxic, No Acute Distress - Head Exam Head Exam: ATRAUMATIC, NORMAL INSPECTION, NORMOCEPHALIC - Eye Exam Eye Exam: EOMI, Normal appearance - ENT Exam ENT Exam: Mucous Membranes Moist, Normal Exam - Neck Exam Neck Exam: Normal Inspection - Respiratory Exam Respiratory Exam: Clear to Ausculation Bilateral, Rhonchi, NORMAL BREATHING PATTERN. absent: Wheezes Additional comments: bilateral upper and lower quadrants - Cardiovascular Exam Cardiovascular Exam: REGULAR RHYTHM, +S1, +S2 - GI/Abdominal Exam GI & Abdominal Exam: Soft, Normal Bowel Sounds - Neurological Exam Neurological Exam: Alert, Awake, Oriented x3 - Psychiatric Exam Psychiatric exam: Normal Affect, Normal Mood - Skin Skin Exam: Intact, Normal Color, Warm Assessment and Plan - Assessment and Plan (Free Text) Assessment: 56yo male PMHx IDDM II, 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 Admitted to med/surg for R knee cellulitis Plan: R knee cellulitis - as per Ortho likely secondary to fall and carbuncle in septic knee - R patella x-ray: soft tissue swelling without acute articular/osseous abnormality - RLE CT w/o contrast: soft tissue swelling without acute articular/osseous abnormality - U/S: negative for DVT in RLE - blood culture prelim neg x 2 after 48 hours - urine culture: final neg - wound culture : strep agalactiae group B staph aureus - Initial VBG showed a lactate of 2.2, repeat lactate 0.9 - ESR 70 --> 120 - CRP > 15 - Procalcitonin <0.05 - Warm compresses on affected area - Tylenol 650mg po q6 prn temp - Continue ultram for pain - ID: Dr Matute on board; since cultures are sensitive to staph aureus vanc no longer needed, will switch to ceftriaxone q 24 - Ortho: Dr. Jesus on board states that there is no need at this time for Incision and drainage. States that the carbuncle might be able to heal with antibiotics alone. - Physical therapy states patient is not able to walk more than 10 steps, needs to at least get through 30 steps to get to his room in the attic. Discussed with watch caser about TCU. His insurance denied, will go for subacute rehab. IDDM - Levemir 20U sc hs - RISS medium - Accucheck Diet: heart healthy mod consistent carb Fluids: NS @ 100cc/hr GI ppx: Protonix 40mg po qd DVT ppx: Heparin 5000u sc q[address] Ariana Farooq PGY1 <Matt Lane - Last Filed: 02/25/17 17:27> Objective - Vital Signs/Intake and Output Vital Signs (last 24 hours): Temp Pulse Resp BP Pulse Ox 99.9 F H 84 20 129/77 96 02/25/17 07:30 02/25/17 07:30 02/25/17 07:30 02/25/17 07:30 02/25/17 07:30 Intake and Output: 02/25/17 02/25/17 06:59 18:59 Intake Total 720 Output Total 1450 Balance -730 - Medications Medications: Current Medications Acetaminophen (Tylenol 325mg Tab) 650 mg PO Q6H PRN PRN Reason: Fever >100.4 F Last Admin: 02/24/17 16:16 Dose: 650 mg Albuterol/Ipratropium (Duoneb 3 Mg/0.5 Mg (3 Ml) Ud) 3 ml IH TIDRESP [facility] Last Admin: 02/25/17 13:10 Dose: 3 ml Heparin Sodium (Porcine) (Heparin) 5,000 units SC Q12 [facility] PRN Reason: Protocol Last Admin: 02/25/17 10:01 Dose: 5,000 units Sodium Chloride (Sodium Chloride 0.9%) 1,000 mls @ 100 mls/hr IV .Q10H [facility] Last Admin: 02/23/17 05:36 Dose: 100 mls/hr Ceftriaxone Sodium (Rocephin 2 Gm Ivpb) 2 gm in 100 mls @ 100 mls/hr IVPB DAILY [facility] PRN Reason: Protocol Stop: 03/03/17 14:23 Last Admin: 02/25/17 10:02 Dose: 100 mls/hr Insulin Detemir (Levemir) 20 unit SC HS REPLACED BY [facility] Last Admin: 02/24/17 21:37 Dose: 20 unit Insulin Human Regular (Humulin R Med) 0 units SC AC [facility] PRN Reason: Protocol Last Admin: 02/25/17 11:46 Dose: 1 units Pantoprazole Sodium (Protonix Ec Tab) 40 mg PO 0600 [facility]PLACED [facility] Last Admin: 02/25/17 05:33 Dose: 40 mg Tramadol HCl (Ultram) 50 mg PO TID PRN PRN Reason: Pain, severe (8-10) Last Admin: 02/24/17 14:16 Dose: 50 mg - Labs Labs: 02/25/17 07:00 02/25/17 07:00 PT 13.9 SECONDS (9.4-12.5) H 02/22/17 05:00 INR 1.26 (0.93-1.08) H 02/22/17 05:00 APTT 33.8 Seconds (25.1-36.5) 02/22/17 05:00 Attending/Attestation - Attestation I have personally seen and examined this patient.: Yes I have fully participated in the care of the patient.: Yes I have reviewed all pertinent clinical information, including history, physical exam and plan: Yes Notes (Text): I have seen and examined the patient at bedside. Agree with the above note with the following additions/ exceptions: Briefly this is 56 year male with history of IDDM 2, left 5th metatarsal amputation who came for evaluation of painful swelling of right knee s/p fall. Ortho eval appreciated. Cellulitis is secondary to fall and carbuncle in septic knee. Continue zosyn. Cultures pending. Continue levemir. Upon discharge will follow up with Dr Botello. Dr Matt Lane
--- NOTE | 2017-02-23 11:30 | RAD ---
HISTORY: newly rhonchorous COMPARISON: 02/21/2017 TECHNIQUE: Chest PA and lateral FINDINGS: LUNGS: No active pulmonary disease. PLEURA: No significant pleural effusion identified. No pneumothorax apparent. CARDIOVASCULAR: Normal. OSSEOUS STRUCTURES: No significant abnormalities. VISUALIZED UPPER ABDOMEN: Normal. OTHER FINDINGS: None. IMPRESSION: No active disease. No significant interval change compared to the prior examination(s).
[2017-02-23] MEDS ORDERED: Albuterol-Ipratrop 3 mg / 0.5 (3 ml) UD IH SCH (14:00)
[2017-02-23] MEDS: Insulin Reg-MEDIUM-Coverage SC SCH ×2 (17:08→19:38)
[2017-02-23] MEDS: cefTRIAXone 2 GM IN NS 2 GM/100 ML BAG IVPB SCH (17:08)
--- NOTE | 2017-02-23 20:55 | PN ---
DATE: 02/23/2017 SUBJECTIVE: The patient is in bed, in no acute distress, was seen earlier today. He is still having pain. He is unable to flex. PHYSICAL EXAMINATION: VITAL SIGNS: Temperature is 99, T-max is 101, blood pressure is 120/70, respiratory rate of 20. HEENT: Unremarkable. NECK: Supple. LUNGS: Decreased breath sounds. HEART: Normal S1 and S2. ABDOMEN: Soft. LABORATORY DATA: Reveals skin culture is growing group B strep agalactiae Staph aureus. Blood cultures are negative. Chest x-ray, no active disease. ASSESSMENT AND PLAN: This is a 56-year-old [place] male, who is diabetic with status post fall with a right knee cellulitis with a group B strep and a sensitive Staph aureus. Case discussed with Dr. Jesus, who feels the patient's joints is not involved, no indication for tapping the joint as per Dr. Jesus. CAT scan is reviewed with him and currently, we will switch to ceftriaxone 2 g and discontinue the vancomycin and Zosyn. Case discussed with Dr. Farooq Farooq. We will follow with you. Daniel Matute MD
[2017-02-23] MEDS: Insulin Detemir 100 units/ml Vial (Levemir) SC SCH (21:59)
--- NOTE | 2017-02-24 02:28 | PROCN ---
DATE: 02/23/2017 Prepatellar carbuncle abscess is coming to a head with the help of the warm compresses. We are able to express some purulent material and took culture and sent it to the lab for culture and sensitivity. The first culture two days ago was gram-positive cocci and will see if it changed. In the meantime, we will continue warm compresses, same antibiotics vancomycin and Zosyn. Hopefully, we could remove the core once it organizes a little more. So, we will keep up the warm compress and the antibiotics and wait for the new culture to come back. Jerrod Jesus DO MTDD
[2017-02-24] MEDS: Pantoprazole 40 mg EC Tab PO SCH (05:42)
[2017-02-24 07:20] LABS: BASO # 0.02 K/mm3 (0.0-2.0); BASO % 0.2 % (0.0-3.0); EOS # 0.2 (0.0-0.7); EOS % 1.9 % (1.5-5.0); GRAN # 5.98 (1.4-6.5); GRAN % 67.5 % (50.0-68.0); LYMPH # 1.9 (1.2-3.4); LYMPH % 21.9 % (22.0-35.0); MEAN CELL VOLUME 84.7 fl (80.0-105.0); MEAN CORPUSCULAR HEMOGLOBIN 28.1 pg (25.0-35.0); MEAN CORPUSCULAR HGB CONC 33.2 g/dl (31.0-37.0); MEAN PLATELET VOLUME 10.7 fl (7.0-11.0); MONO # 0.8 (0.1-0.6); MONO % 8.5 % (1.0-6.0); RBC 3.2 10^6/uL (3.5-6.1); RED CELL DISTRIBUTION WIDTH 13.9 % (11.5-14.5); WHITE BLOOD COUNT 8.9 10^3/ul (4.5-11.0)
[2017-02-24] MEDS: Albuterol-Ipratrop 3 mg / 0.5 (3 ml) UD IH SCH ×3 (07:22→20:23)
[2017-02-24 07:45] LABS: ALB/GLOB RATIO 0.8 (1.1-1.8); ALBUMIN 3.1 g/dL (3.0-4.8); ALT/SGPT 39 U/L (7-56); AST/SGOT 36 U/L (17-59); BLOOD UREA NITROGEN 9 mg/dL (7-21); CALCIUM 8.4 mg/dL (8.4-10.5); GFR AFRICAN-AMERICAN > 60; GFR NON-AFRICAN AMERICAN > 60
[2017-02-24] MEDS: cefTRIAXone 2 GM IN NS 2 GM/100 ML BAG IVPB SCH (09:59)
[2017-02-24] MEDS: Insulin Reg-MEDIUM-Coverage SC SCH ×3 (10:10→16:48)
--- NOTE | 2017-02-24 14:25 | PN ---
DATE: 02/24/2017 LOCATION: Room 573, bed 1. SUBJECTIVE: The patient has a carbuncle of the right prepatellar region and we are waiting for the abscess to organize so he develops a core that could be readily expressed with the help of warm compresses. I tried to express a little today, just liquid, purulent material came out with some blood, which is good sign for the beginning of core organizing. Hopefully, the antibiotics are specifically enough that are well demarcated core that we could express and removed at bedside, but there are no symptoms of night pain or throbbing pain within the superficial abscess and can move the knee quite well. Continue with warm compresses and clean sterile dressings and we will check him again tomorrow, hopefully we could express a core once the abscess organizes and it does appear to be better because it is not spreading and there is less tenderness and pain. Jerrod Jesus DO REY
--- NOTE | 2017-02-24 14:55 | CP.PCM.PN ---
<Farooq Farooq - Last Filed: 02/24/17 14:52> Subjective - Date & Time of Evaluation Date of Evaluation: 02/24/17 Time of Evaluation: 05:40 - Subjective Subjective: Patient seen and examined at bedside in no acute distress. States his pain has improved and he is slightly more mobile with his right knee. Patient denies any acute events overnight. Denies shortness of breath, chest pain, nausea, vomiting , diarrhea. Objective - Vital Signs/Intake and Output Vital Signs (last 24 hours): Temp Pulse Resp BP Pulse Ox 99.9 F H 86 20 128/82 98 02/24/17 08:16 02/24/17 08:16 02/24/17 08:16 02/24/17 08:16 02/24/17 08:16 Intake and Output: 02/24/17 02/24/17 06:59 18:59 Intake Total 300 Balance 300 - Medications Medications: Current Medications Acetaminophen (Tylenol 325mg Tab) 650 mg PO Q6H PRN PRN Reason: Fever >100.4 F Last Admin: 02/22/17 23:21 Dose: 650 mg Albuterol/Ipratropium (Duoneb 3 Mg/0.5 Mg (3 Ml) Ud) 3 ml IH TIDRESP [facility] Last Admin: 02/24/17 13:53 Dose: 3 ml Heparin Sodium (Porcine) (Heparin) 5,000 units SC Q12 [facility] PRN Reason: Protocol Last Admin: 02/24/17 10:05 Dose: 5,000 units Sodium Chloride (Sodium Chloride 0.9%) 1,000 mls @ 100 mls/hr IV .Q10H [facility] Last Admin: 02/23/17 05:36 Dose: 100 mls/hr Ceftriaxone Sodium (Rocephin 2 Gm Ivpb) 2 gm in 100 mls @ 100 mls/hr IVPB DAILY [facility] PRN Reason: Protocol Stop: 03/03/17 14:23 Last Admin: 02/24/17 09:59 Dose: 100 mls/hr Insulin Detemir (Levemir) 20 unit SC HS [facility] Last Admin: 02/23/17 21:59 Dose: 20 unit Insulin Human Regular (Humulin R Med) 0 units SC AC [facility] PRN Reason: Protocol Last Admin: 02/24/17 13:22 Dose: 1 units Pantoprazole Sodium (Protonix Ec Tab) 40 mg PO 0600 [facility] Last Admin: 02/24/17 05:42 Dose: Not Given Tramadol HCl (Ultram) 50 mg PO TID PRN PRN Reason: Pain, severe (8-10) Last Admin: 02/24/17 14:16 Dose: 50 mg - Labs Labs: 02/24/17 06:45 02/24/17 06:45 PT 13.9 SECONDS (9.4-12.5) H 02/22/17 05:00 INR 1.26 (0.93-1.08) H 02/22/17 05:00 APTT 33.8 Seconds (25.1-36.5) 02/22/17 05:00 - Constitutional Appears: Non-toxic, No Acute Distress - Head Exam Head Exam: ATRAUMATIC, NORMAL INSPECTION, NORMOCEPHALIC - Eye Exam Eye Exam: EOMI, Normal appearance - ENT Exam ENT Exam: Mucous Membranes Moist, Normal Exam - Neck Exam Neck Exam: Normal Inspection - Respiratory Exam Respiratory Exam: Rhonchi (bilateral upper and lower lobes), NORMAL BREATHING PATTERN - Cardiovascular Exam Cardiovascular Exam: REGULAR RHYTHM, +S1, +S2 - GI/Abdominal Exam GI & Abdominal Exam: Soft, Normal Bowel Sounds - Neurological Exam Neurological Exam: Alert, Awake, Oriented x3 - Psychiatric Exam Psychiatric exam: Normal Affect, Normal Mood - Skin Skin Exam: Intact, Normal Color, Warm Assessment and Plan - Assessment and Plan (Free Text) Assessment: 56yo male PMHx IDDM II, 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 Admitted to med/surg for R knee cellulitis. Plan: R knee cellulitis - R patella x-ray: soft tissue swelling without acute articular/osseous abnormality - RLE CT w/o contrast: soft tissue swelling without acute articular/osseous abnormality - U/S: negative for DVT in RLE - blood culture prelim neg x 2 after 72 hours - urine culture: final neg - wound culture : strep agalactiae group B staph aureus - Initial VBG showed a lactate of 2.2, repeat lactate 0.9 - Patient states warm compresses are helping with his pain, will continue with warm compresses on affected area - Tylenol 650mg po q6 prn temp - Continue ultram for pain - ID: Dr Matute on board; since cultures are sensitive to staph aureus vanc no longer needed, will switch to ceftriaxone q 24. - Ortho: Dr. Jesus on board states that there is no need at this time for Incision and drainage. States that the carbuncle might be able to heal with antibiotics alone; will continue with IV abx and access patient on Wednesday for possible d/c to subacute rehab. Very important to make sure patient is able to bend knee without pain before sending home considering patient has 30 steps in order to get to his room at home. IDDM - Levemir 20U sc hs - RISS medium - Accucheck Diet: heart healthy mod consistent carb Fluids: NS @ 100cc/hr GI ppx: Protonix 40mg po qd DVT ppx: Heparin 5000u sc q[address] Ariana Farooq PGY1 <Matt Lane B - Last Filed: 02/25/17 17:31> Objective - Vital Signs/Intake and Output Vital Signs (last 24 hours): Temp Pulse Resp BP Pulse Ox 99.9 F H 84 20 129/77 96 02/25/17 07:30 02/25/17 07:30 02/25/17 07:30 02/25/17 07:30 02/25/17 07:30 Intake and Output: 02/25/17 02/25/17 06:59 18:59 Intake Total 720 600 Output Total 1450 1000 Balance -730 -400 - Medications Medications: Current Medications Acetaminophen (Tylenol 325mg Tab) 650 mg PO Q6H PRN PRN Reason: Fever >100.4 F Last Admin: 02/24/17 16:16 Dose: 650 mg Albuterol/Ipratropium (Duoneb 3 Mg/0.5 Mg (3 Ml) Ud) 3 ml IH TIDRESP [facility] Last Admin: 02/25/17 13:10 Dose: 3 ml Heparin Sodium (Porcine) (Heparin) 5,000 units SC Q12 [facility] PRN Reason: Protocol Last Admin: 02/25/17 10:01 Dose: 5,000 units Sodium Chloride (Sodium Chloride 0.9%) 1,000 mls @ 100 mls/hr IV .Q10H [facility] Last Admin: 02/23/17 05:36 Dose: 100 mls/hr Ceftriaxone Sodium (Rocephin 2 Gm Ivpb) 2 gm in 100 mls @ 100 mls/hr IVPB DAILY [facility] PRN Reason: Protocol Stop: 03/03/17 14:23 Last Admin: 02/25/17 10:02 Dose: 100 mls/hr Insulin Detemir (Levemir) 20 unit SC HS [facility] Last Admin: 02/24/17 21:37 Dose: 20 unit Insulin Human Regular (Humulin R Med) 0 units SC AC [facility] PRN Reason: Protocol Last Admin: 02/25/17 11:46 Dose: 1 units Pantoprazole Sodium (Protonix Ec Tab) 40 mg PO 0600 [facility] Last Admin: 02/25/17 05:33 Dose: 40 mg Tramadol HCl (Ultram) 50 mg PO TID PRN PRN Reason: Pain, severe (8-10) Last Admin: 02/24/17 14:16 Dose: 50 mg - Labs Labs: 02/25/17 07:00 02/25/17 07:00 PT 13.9 SECONDS (9.4-12.5) H 02/22/17 05:00 INR 1.26 (0.93-1.08) H 02/22/17 05:00 APTT 33.8 Seconds (25.1-36.5) 02/22/17 05:00 Attending/Attestation - Attestation I have personally seen and examined this patient.: Yes I have fully participated in the care of the patient.: Yes I have reviewed all pertinent clinical information, including history, physical exam and plan: Yes Notes (Text): I have seen and examined the patient at bedside. Agree with the above note with the following additions/ exceptions: Briefly this is 56 year male with history of IDDM 2, left 5th metatarsal amputation who came for evaluation of painful swelling of right knee s/p fall. Ortho eval appreciated. Cellulitis is secondary to fall and carbuncle in septic knee. Swelling and erythema improved. Continue rocephin. Cultures grew strep agalactiae and staph aureus. Repeat culture grew staph aureus. Continue levemir. Upon discharge will follow up with Dr Botello. Dr Matt Lane
[2017-02-24] MEDS: Insulin Detemir 100 units/ml Vial (Levemir) SC SCH (21:37)
--- NOTE | 2017-02-25 01:51 | PN ---
DATE: 02/24/2017 SUBJECTIVE: The patient is in bed, in no acute distress. The patient was seen earlier this morning. PHYSICAL EXAMINATION: VITAL SIGNS: Temperature of 102, blood pressure is 108/60, respiratory rate of 18, heart rate of 91. HEENT: Unremarkable. NECK: Supple. LUNGS: Decreased breath sounds. HEART: Normal S1 and S2. ABDOMEN: Soft, nontender. LABORATORY EXAMINATION: Reveals the patient has a white count of 8. Sed rate is up to 120. BUN is 9, creatinine of 0.6. LFTs are noted. Alkaline phosphatase of 359. Urinalysis is noted. HIV is negative. Microbiology reveals group A and B Strep agalactiae and Staph aureus from the skin. Staph aureus is oxacillin sensitive. Second cultures have gram-positive cocci. Identification and sensitivity are pending. Review of orders reveals the patient to be on ceftriaxone. ASSESSMENT AND PLAN: This is a 56-year-old male with diabetes, status post fall with right knee cellulitis with group B Streptococcus and sensitive Staphylococcus aureus. Currently on ceftriaxone and still having temperature of 102, may need local debridement. We will continue to follow the patient with you, and Dr. Farooq Farooq' note is reviewed. We will follow with you. Daniel Matute MD
[2017-02-25] MEDS: Pantoprazole 40 mg EC Tab PO SCH (05:33)
--- NOTE | 2017-02-25 06:08 | CP.PCM.PN ---
<Farooq Farooq - Last Filed: 02/25/17 17:39> Subjective - Date & Time of Evaluation Date of Evaluation: 02/25/17 Time of Evaluation: 05:50 - Subjective Subjective: Patient seen and examined at bedside. Overnight nurse states patient's temp was 100.2, rechecked went down to 99 also states patient had no complaints of pain overnight and is contuining with warm compresses. Patient states his pain has improved. He is able to bend his right knee much more than before. States therapy is helping and pain is being well controlled with current meds. States that the size of the bandage is preventing him from extending and flexing his knee as much as possible, requests a smaller bandage. Patient was seen with Dr. Jesus. Dr. Jesus would like to try refrain from I&D at this time. Loculations were broken up manually by local debridement. Denies shortness of breath, chest pain, nausea, vomiting, diarrhea, abdominal pain. Objective - Vital Signs/Intake and Output Vital Signs (last 24 hours): Temp Pulse Resp BP Pulse Ox 99.7 F H 91 H 20 126/71 95 02/25/17 00:00 02/25/17 00:00 02/25/17 00:00 02/25/17 00:00 02/25/17 00:00 Intake and Output: 02/24/17 02/25/17 18:59 06:59 Intake Total 600 720 Output Total 400 1450 Balance 200 -730 - Medications Medications: Current Medications Acetaminophen (Tylenol 325mg Tab) 650 mg PO Q6H PRN PRN Reason: Fever >100.4 F Last Admin: 02/24/17 16:16 Dose: 650 mg Albuterol/Ipratropium (Duoneb 3 Mg/0.5 Mg (3 Ml) Ud) 3 ml IH TIDRESP [facility] Last Admin: 02/24/17 20:23 Dose: 3 ml Heparin Sodium (Porcine) (Heparin) 5,000 units SC Q12 [facility] PRN Reason: Protocol Last Admin: 02/24/17 21:37 Dose: 5,000 units Sodium Chloride (Sodium Chloride 0.9%) 1,000 mls @ 100 mls/hr IV .Q10H [facility] Last Admin: 02/23/17 05:36 Dose: 100 mls/hr Ceftriaxone Sodium (Rocephin 2 Gm Ivpb) 2 gm in 100 mls @ 100 mls/hr IVPB DAILY [facility] PRN Reason: Protocol Stop: 03/03/17 14:23 Last Admin: 02/24/17 09:59 Dose: 100 mls/hr Insulin Detemir (Levemir) 20 unit SC HS [facility] Last Admin: 02/24/17 21:37 Dose: 20 unit Insulin Human Regular (Humulin R Med) 0 units SC AC [facility] PRN Reason: Protocol Last Admin: 02/24/17 16:48 Dose: 1 units Pantoprazole Sodium (Protonix Ec Tab) 40 mg PO 0600 [facility] Last Admin: 02/25/17 05:33 Dose: 40 mg Tramadol HCl (Ultram) 50 mg PO TID PRN PRN Reason: Pain, severe (8-10) Last Admin: 02/24/17 14:16 Dose: 50 mg - Labs Labs: 02/24/17 06:45 02/24/17 06:45 PT 13.9 SECONDS (9.4-12.5) H 02/22/17 05:00 INR 1.26 (0.93-1.08) H 02/22/17 05:00 APTT 33.8 Seconds (25.1-36.5) 02/22/17 05:00 - Constitutional Appears: Non-toxic, No Acute Distress - Head Exam Head Exam: ATRAUMATIC, NORMAL INSPECTION, NORMOCEPHALIC - Eye Exam Eye Exam: EOMI, Normal appearance - ENT Exam ENT Exam: Mucous Membranes Moist - Respiratory Exam Respiratory Exam: Clear to Ausculation Bilateral, Rhonchi (has resolved in upper lower lobes, continues to improve in lower lobes), NORMAL BREATHING PATTERN - Cardiovascular Exam Cardiovascular Exam: REGULAR RHYTHM, +S1, +S2 - GI/Abdominal Exam GI & Abdominal Exam: Soft, Normal Bowel Sounds - Back Exam Back Exam: NORMAL INSPECTION - Neurological Exam Neurological Exam: Alert, Awake, Oriented x3 - Psychiatric Exam Psychiatric exam: Normal Affect, Normal Mood - Skin Skin Exam: Normal Color, Warm Additional comments: erythema of right knee has resolved, induration is decreasing, swelling has also improved Assessment and Plan - Assessment and Plan (Free Text) Assessment: 56yo male PMHx IDDM II, 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 Admitted to med/surg for R knee cellulitis. Plan: R knee cellulitis - R patella x-ray: soft tissue swelling without acute articular/osseous abnormality - RLE CT w/o contrast: soft tissue swelling without acute articular/osseous abnormality - U/S: negative for DVT in RLE - blood culture prelim neg x 2 after 4 days - urine culture: final neg - wound culture : strep agalactiae group B staph aureus, repeat culture is positive for s. aureus - Initial VBG showed a lactate of 2.2, repeat lactate 0.9 - Patient states warm compresses are helping with his pain, will continue with warm compresses on affected area - Tylenol 650mg po q6 prn temp - Continue ultram for pain - ID: Dr Matute on board; since cultures are sensitive to staph aureus vanc no longer needed, will switch to ceftriaxone q 24. Patient had a fever of 102 overnight, most likely will resolve with local debridement. Continue to monitor. Patient has been afebrile since. - Ortho: Dr. Jesus on board performed local debridement, initially pus was excavated, after continuous debridement blood began to emerge from wound; which is a good sign. Bandage was replaced with a smaller optifoam border bandage as per patient's request. Will continue with IV antibiotics and local debridements. -Considering fever and need for local debridement, patient will benefit from more IV antibiotics as well as physical therapy sessions before discharge. IDDM - will increase Levemir 20U sc hs to 25 for better glucose control; which will allow for better healing - RISS medium - Accucheck Diet: heart healthy mod consistent carb Fluids: NS @ 100cc/hr GI ppx: Protonix 40mg po qd DVT ppx: Heparin 5000u sc q[address] Ariana Farooq PGY1 <Matt aLne - Last Filed: 02/26/17 16:15> Objective - Vital Signs/Intake and Output Vital Signs (last 24 hours): Temp Pulse Resp BP Pulse Ox 99.5 F 80 20 125/73 96 02/26/17 07:30 02/26/17 07:30 02/26/17 07:30 02/26/17 07:30 02/26/17 07:30 Intake and Output: 02/26/17 02/26/17 06:59 18:59 Intake Total 960 Output Total 1950 Balance -990 - Medications Medications: Current Medications Acetaminophen (Tylenol 325mg Tab) 650 mg PO Q6H PRN PRN Reason: Fever >100.4 F Last Admin: 02/24/17 16:16 Dose: 650 mg Albuterol/Ipratropium (Duoneb 3 Mg/0.5 Mg (3 Ml) Ud) 3 ml IH TIDRESP [facility] Last Admin: 02/26/17 13:05 Dose: 3 ml Heparin Sodium (Porcine) (Heparin) 5,000 units SC Q12 [facility] PRN Reason: Protocol Last Admin: 02/26/17 09:16 Dose: 5,000 units Ceftriaxone Sodium (Rocephin 2 Gm Ivpb) 2 gm in 100 mls @ 100 mls/hr IVPB DAILY [facility] PRN Reason: Protocol Stop: 03/03/17 14:23 Last Admin: 02/26/17 09:17 Dose: 100 mls/hr Insulin Detemir (Levemir) 25 unit SC HS [facility] Last Admin: 02/25/17 21:46 Dose: 25 unit Insulin Human Regular (Humulin R Med) 0 units SC AC [facility] PRN Reason: Protocol Last Admin: 02/26/17 13:04 Dose: 1 units Pantoprazole Sodium (Protonix Ec Tab) 40 mg PO 0600 [facility] Last Admin: 02/26/17 05:32 Dose: 40 mg Tramadol HCl (Ultram) 50 mg PO TID PRN PRN Reason: Pain, severe (8-10) Last Admin: 02/25/17 17:29 Dose: 50 mg - Labs Labs: 02/26/17 07:30 02/26/17 07:30 PT 13.9 SECONDS (9.4-12.5) H 02/22/17 05:00 INR 1.26 (0.93-1.08) H 02/22/17 05:00 APTT 33.8 Seconds (25.1-36.5) 02/22/17 05:00 Attending/Attestation - Attestation I have personally seen and examined this patient.: Yes I have fully participated in the care of the patient.: Yes I have reviewed all pertinent clinical information, including history, physical exam and plan: Yes Notes (Text): I have seen and examined the patient at bedside. Agree with the above note with the following additions/ exceptions: Briefly this is 56 year male with history of IDDM 2, left 5th metatarsal amputation who came for evaluation of painful swelling of right knee s/p fall. Ortho eval appreciated. Cellulitis is secondary to fall and carbuncle in septic knee. Swelling and erythema improved however he continues to have pain while bending his knee. Today Dr Jesus did manual local bedside debridement. Continue rocephin. Repeat culture grew staph aureus. Continue rocephin. Continue Physical therapy. Upon discharge will follow up with Dr Botello. Dr Matt Lane
[2017-02-25] MEDS: Albuterol-Ipratrop 3 mg / 0.5 (3 ml) UD IH SCH ×3 (07:15→21:40)
[2017-02-25 07:40] LABS: BASO # 0.03 K/mm3 (0.0-2.0); BASO % 0.3 % (0.0-3.0); EOS # 0.2 (0.0-0.7); EOS % 1.8 % (1.5-5.0); GRAN # 6.78 (1.4-6.5); GRAN % 69.8 % (50.0-68.0); HEMOGLOBIN 9.2 g/dL (14.0-18.0); LYMPH # 1.8 (1.2-3.4); LYMPH % 18.7 % (22.0-35.0); MEAN CELL VOLUME 84.9 fl (80.0-105.0); MEAN CORPUSCULAR HEMOGLOBIN 27.8 pg (25.0-35.0); MEAN CORPUSCULAR HGB CONC 32.7 g/dl (31.0-37.0); MEAN PLATELET VOLUME 10.2 fl (7.0-11.0); MONO # 0.9 (0.1-0.6); MONO % 9.4 % (1.0-6.0); RBC 3.31 10^6/uL (3.5-6.1); RED CELL DISTRIBUTION WIDTH 13.9 % (11.5-14.5); WHITE BLOOD COUNT 9.7 10^3/ul (4.5-11.0)
[2017-02-25] MEDS: Insulin Reg-MEDIUM-Coverage SC SCH ×3 (08:11→17:28)
[2017-02-25 08:54] LABS: ALB/GLOB RATIO 0.8 (1.1-1.8); ALBUMIN 3.1 g/dL (3.0-4.8); ALT/SGPT 54 U/L (7-56); AST/SGOT 35 U/L (17-59); BLOOD UREA NITROGEN 8 mg/dL (7-21); CALCIUM 8.5 mg/dL (8.4-10.5); GFR AFRICAN-AMERICAN > 60; GFR NON-AFRICAN AMERICAN > 60
--- NOTE | 2017-02-25 09:51 | PROCN ---
DATE: 02/25/2017 The abscess on his right knee still has approximately 50% less induration, but he still has areas of induration around the periphery of the abscess and I enlarged it today by probing with a Q-tip and irrigating it out with normal saline expressing more purulent material. The culture came back as cocci in clusters. No sensitivity yet. PROCEDURE: Today's procedure of opening up the abscess to let it drain more, breaking up the locations and adhesions and to improve the vascularity of the area with warm compresses. Hopefully, I will start organizing, get a nidus that we could evacuate better. Continuously, we will have to put 0.25 inch packing in, we will see how it looks tomorrow and we have to check the sensitivity also, to make sure we are on the right antibiotic. Jerrod Jesus DO
[2017-02-25] MEDS: cefTRIAXone 2 GM IN NS 2 GM/100 ML BAG IVPB SCH (10:02)
--- NOTE | 2017-02-25 19:43 | PN ---
DATE: 02/25/2017 SUBJECTIVE: The patient is in bed, in no acute distress. OBJECTIVE: VITAL SIGNS: On exam, temperature is 99, T-max is 102, blood pressure is 129/70, respiratory rate of 20, heart rate of 84. HEENT: Unremarkable. NECK: Supple. LUNGS: Have decreased breath sounds. HEART: Normal S1, S2. ABDOMEN: Soft, nontender. LABORATORY EXAMINATION: Reveals a white count of 9.7, hemoglobin of 9, platelets of 368. Chemistries reveal a BUN of 8, creatinine of 0.6. Urinalysis is noted and HIV is negative. Cultures are positive for group B strep and sensitive Staph aureus and a repeat is positive for Staph aureus which is also sensitive. ASSESSMENT AND PLAN: This is a 56-year-old male with diabetes mellitus, right knee cellulitis, group B strep sensitive Staph aureus, on ceftriaxone and we will continue the present course. Daniel Matute MD
[2017-02-25] MEDS: Insulin Detemir 100 units/ml Vial (Levemir) SC SCH (21:46)
[2017-02-26] MEDS: Pantoprazole 40 mg EC Tab PO SCH (05:32)
[2017-02-26] MEDS: Albuterol-Ipratrop 3 mg / 0.5 (3 ml) UD IH SCH ×3 (07:12→19:54)
[2017-02-26 07:48] LABS: BASO # 0.02 K/mm3 (0.0-2.0); BASO % 0.2 % (0.0-3.0); EOS # 0.2 (0.0-0.7); EOS % 2.3 % (1.5-5.0); GRAN # 7.09 (1.4-6.5); GRAN % 69.7 % (50.0-68.0); LYMPH # 1.9 (1.2-3.4); LYMPH % 18.9 % (22.0-35.0); MEAN CELL VOLUME 84.7 fl (80.0-105.0); MEAN CORPUSCULAR HEMOGLOBIN 28.2 pg (25.0-35.0); MEAN CORPUSCULAR HGB CONC 33.3 g/dl (31.0-37.0); MONO # 0.9 (0.1-0.6); MONO % 8.9 % (1.0-6.0); RBC 3.54 10^6/uL (3.5-6.1); WHITE BLOOD COUNT 10.2 10^3/ul (4.5-11.0)
[2017-02-26 08:13] LABS: ALB/GLOB RATIO 0.8 (1.1-1.8); ALBUMIN 3.3 g/dL (3.0-4.8); ALT/SGPT 45 U/L (7-56); AST/SGOT 30 U/L (17-59); BLOOD UREA NITROGEN 9 mg/dL (7-21); CALCIUM 8.8 mg/dL (8.4-10.5); GFR AFRICAN-AMERICAN > 60; GFR NON-AFRICAN AMERICAN > 60
[2017-02-26] MEDS: cefTRIAXone 2 GM IN NS 2 GM/100 ML BAG IVPB SCH (09:17)
[2017-02-26] MEDS: Insulin Reg-MEDIUM-Coverage SC SCH ×3 (09:24→17:50)
--- NOTE | 2017-02-26 11:17 | CP.PCM.PN ---
Subjective - Date & Time of Evaluation Date of Evaluation: 02/26/17 Time of Evaluation: 07:00 - Subjective Subjective: Patient seen and examined at bedside in no acute distress. Patient states he continues to move his right knee towards flexion and extension as much as he can. Is concerned about when he is going home. Examined patient with Dr. Jesus, local debridement was done, due to long tract associated with wound, wound was packed. Denies fevers, chills, cough, abdominal pain, nausea, vomiting, diarrhea. Objective - Vital Signs/Intake and Output Vital Signs (last 24 hours): Temp Pulse Resp BP Pulse Ox 99.5 F 80 20 125/73 96 02/26/17 07:30 02/26/17 07:30 02/26/17 07:30 02/26/17 07:30 02/26/17 07:30 Intake and Output: 02/26/17 02/26/17 06:59 18:59 Intake Total 960 Output Total 1950 Balance -990 - Medications Medications: Current Medications Acetaminophen (Tylenol 325mg Tab) 650 mg PO Q6H PRN PRN Reason: Fever >100.4 F Last Admin: 02/24/17 16:16 Dose: 650 mg Albuterol/Ipratropium (Duoneb 3 Mg/0.5 Mg (3 Ml) Ud) 3 ml IH TIDRESP [facility] Last Admin: 02/26/17 07:12 Dose: 3 ml Heparin Sodium (Porcine) (Heparin) 5,000 units SC Q12 [facility] PRN Reason: Protocol Last Admin: 02/26/17 09:16 Dose: 5,000 units Sodium Chloride (Sodium Chloride 0.9%) 1,000 mls @ 100 mls/hr IV .Q10H [facility] Last Admin: 02/23/17 05:36 Dose: 100 mls/hr Ceftriaxone Sodium (Rocephin 2 Gm Ivpb) 2 gm in 100 mls @ 100 mls/hr IVPB DAILY [facility] PRN Reason: Protocol Stop: 03/03/17 14:23 Last Admin: 02/26/17 09:17 Dose: 100 mls/hr Insulin Detemir (Levemir) 25 unit SC HS [facility] Last Admin: 02/25/17 21:46 Dose: 25 unit Insulin Human Regular (Humulin R Med) 0 units SC AC [facility] PRN Reason: Protocol Last Admin: 02/26/17 09:24 Dose: Not Given Ketorolac Tromethamine (Toradol) 60 mg IM Q8H PRN PRN Reason: Pain, severe (8-10) Last Admin: 02/26/17 10:27 Dose: 60 mg Pantoprazole Sodium (Protonix Ec Tab) 40 mg PO 0600 [facility] Last Admin: 02/26/17 05:32 Dose: 40 mg Tramadol HCl (Ultram) 50 mg PO TID PRN PRN Reason: Pain, severe (8-10) Last Admin: 02/25/17 17:29 Dose: 50 mg - Labs Labs: 02/26/17 07:30 02/26/17 07:30 PT 13.9 SECONDS (9.4-12.5) H 02/22/17 05:00 INR 1.26 (0.93-1.08) H 02/22/17 05:00 APTT 33.8 Seconds (25.1-36.5) 02/22/17 05:00 - Constitutional Appears: Non-toxic, No Acute Distress - Head Exam Head Exam: ATRAUMATIC, NORMAL INSPECTION, NORMOCEPHALIC - Eye Exam Eye Exam: EOMI, Normal appearance - ENT Exam ENT Exam: Mucous Membranes Moist, Normal Exam - Respiratory Exam Respiratory Exam: Clear to Ausculation Bilateral, NORMAL BREATHING PATTERN. absent: Wheezes - Cardiovascular Exam Cardiovascular Exam: REGULAR RHYTHM, +S1, +S2 - GI/Abdominal Exam GI & Abdominal Exam: Soft, Normal Bowel Sounds. absent: Tenderness - Neurological Exam Neurological Exam: Alert, Awake, Oriented x3 - Psychiatric Exam Psychiatric exam: Normal Affect, Normal Mood - Skin Skin Exam: Intact, Normal Color, Warm Assessment and Plan - Assessment and Plan (Free Text) Assessment: 56yo male PMHx IDDM II, 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 Admitted to med/surg for R knee cellulitis. Plan: R knee cellulitis - R patella x-ray: soft tissue swelling without acute articular/osseous abnormality - RLE CT w/o contrast: soft tissue swelling without acute articular/osseous abnormality - U/S: negative for DVT in RLE - blood culture prelim neg x 2 after 4 days - urine culture: final neg - wound culture : strep agalactiae group B staph aureus, repeat culture is positive for s. aureus - Initial VBG showed a lactate of 2.2, repeat lactate 0.9 - Patient states warm compresses are helping with his pain, will continue with warm compresses on affected area - Tylenol 650mg po q6 prn temp - Continue ultram for pain - ID: Dr Matute on board; since cultures are sensitive to staph aureus vanc no longer needed, now on ceftriaxone q 24. Patient had a fever of 102 overnight , most likely will resolve with local debridement. Continue to monitor. Patient has been afebrile since. - Ortho: Dr. Jesus on board performed local debridement, wound is tracking to right below the knee; packing was placed. Will continue to monitor wound. As per ortho may need to do surgical I&D if not healing well but will continue to monitor over the next few days as surgical opening is not the preferred plan. Will continue with IV antibiotics and local debridements. -No discharge to [facility] at the moment considering placement of packing today. IDDM - Levemir 25U sc - RISS medium - Accucheck Diet: heart healthy mod consistent carb Fluids: discontinued GI ppx: Protonix 40mg po qd DVT ppx: Heparin 5000u sc q12 Discuss[address] Lane
--- NOTE | 2017-02-26 15:11 | PN ---
DATE: 02/26/2017 SUBJECTIVE: The patient, Mr. Morrison, was seen in [facility], bed 1. PHYSICAL EXAMINATION VITAL SIGNS: Temperature is 98, blood pressure is 120/70, and respirations 16. HEENT: Unremarkable. NECK: Supple. LUNGS: Decreased breath sounds. HEART: Normal S1 and S2. ABDOMEN: Soft and nontender. EXTREMITIES: Examination of the knee appears to be improving. LABORATORY DATA: Reveals a white count of 10,000, hemoglobin of 10, BUN of 9, creatinine 0.6 with procalcitonin less than 0.05. Urinalysis is noted, and serology, his HIV is negative. Microbiology reveals there is Staph aureus and a group B Strep from the knee culture. On repeat one, there is a Staph aureus, it is pansensitive Staph. Review of orders reveals the patient to be on ceftriaxone. ASSESSMENT AND PLAN: This is a 56-year-old male with diabetes mellitus, right knee cellulitis, group B Streptococcus, sensitive Staph. Currently on ceftriaxone. The patient needs physical therapy. Continue with medical care. We will follow with you. Daniel Matute MD
[2017-02-26] MEDS: Insulin Detemir 100 units/ml Vial (Levemir) SC SCH (22:00)
--- NOTE | 2017-02-27 03:38 | PROCN ---
He has been in the hospital with cellulitis of his right knee prepatellar region that has been difficult to eradicate, right now we have been expressing few purulent material, on the appropriate antibiotic, right now he is on rifampin. I probed the wound today and I retracted down of 2 inches distal to the pointing area at the prepatellar just anterior to patella densely packed it after we irrigated out with normal saline, and I will remove the packing in a day or 2, and hopefully this will help accelerate the removal of the purulent material. I am still going to try to do this at the bedside, does not require surgery or formal I and D at this time, I think we can control it with packing and irrigation at the bedside. Jerrod Jesus DO MTDJohn
[2017-02-27] MEDS: Pantoprazole 40 mg EC Tab PO SCH (05:51)
[2017-02-27] MEDS: Albuterol-Ipratrop 3 mg / 0.5 (3 ml) UD IH SCH ×3 (07:13→19:17)
[2017-02-27] MEDS: Insulin Reg-MEDIUM-Coverage SC SCH ×3 (09:03→17:32)
[2017-02-27] MEDS: cefTRIAXone 2 GM IN NS 2 GM/100 ML BAG IVPB SCH (09:33)
--- NOTE | 2017-02-27 16:00 | CP.PCM.PN ---
<Perfecto Kang - Last Filed: 02/27/17 15:48> Subjective - Date & Time of Evaluation Date of Evaluation: 02/27/17 Time of Evaluation: 15:48 - Subjective Subjective: Medicine Progress Note Pt seen and examined at bedside. No acute overnight events. Pt states that pain in right knee is improved and is able to bend knee more. Pt denied CP, SOB, nausea, vomiting, diarrhea, abdominal pain, fever, chills, Objective - Vital Signs/Intake and Output Vital Signs (last 24 hours): Temp Pulse Resp BP Pulse Ox 99 F 82 20 140/72 98 02/27/17 08:05 02/27/17 08:05 02/27/17 08:05 02/27/17 08:05 02/27/17 08:05 Intake and Output: 02/27/17 02/27/17 06:59 18:59 Intake Total 240 820 Output Total 925 2400 Balance -685 -1580 - Medications Medications: Current Medications Acetaminophen (Tylenol 325mg Tab) 650 mg PO Q6H PRN PRN Reason: Fever >100.4 F Last Admin: 02/24/17 16:16 Dose: 650 mg Albuterol/Ipratropium (Duoneb 3 Mg/0.5 Mg (3 Ml) Ud) 3 ml IH TIDRESP [facility] Last Admin: 02/27/17 14:00 Dose: 3 ml Heparin Sodium (Porcine) (Heparin) 5,000 units SC Q12 [facility] PRN Reason: Protocol Last Admin: 02/27/17 09:32 Dose: 5,000 units Ceftriaxone Sodium (Rocephin 2 Gm Ivpb) 2 gm in 100 mls @ 100 mls/hr IVPB DAILY [facility] PRN Reason: Protocol Stop: 03/03/17 14:23 Last Admin: 02/27/17 09:33 Dose: 100 mls/hr Insulin Detemir (Levemir) 25 unit SC HS [facility] Last Admin: 02/26/17 22:00 Dose: 25 unit Insulin Human Regular (Humulin R Med) 0 units SC AC [facility] PRN Reason: Protocol Last Admin: 02/27/17 13:23 Dose: 3 units Pantoprazole Sodium (Protonix Ec Tab) 40 mg PO 0600 [facility] Last Admin: 02/27/17 05:51 Dose: 40 mg Tramadol HCl (Ultram) 50 mg PO TID PRN PRN Reason: Pain, severe (8-10) Last Admin: 02/25/17 17:29 Dose: 50 mg - Labs Labs: 02/26/17 07:30 02/26/17 07:30 PT 13.9 SECONDS (9.4-12.5) H 02/22/17 05:00 INR 1.26 (0.93-1.08) H 02/22/17 05:00 APTT 33.8 Seconds (25.1-36.5) 02/22/17 05:00 - Constitutional Appears: No Acute Distress - Head Exam Head Exam: NORMAL INSPECTION - Eye Exam Eye Exam: Normal appearance - ENT Exam ENT Exam: Normal Exam - Neck Exam Neck Exam: Normal Inspection - Respiratory Exam Respiratory Exam: Clear to Ausculation Bilateral. absent: Accessory Muscle Use , Rales, Rhonchi, Wheezes, Respiratory Distress - Cardiovascular Exam Cardiovascular Exam: RRR, +S1, +S2. absent: Gallop, Rubs, Murmur - GI/Abdominal Exam GI & Abdominal Exam: Soft. absent: Distended, Guarding, Tenderness, Rebound - Extremities Exam Additional comments: erythema of right knee has resolved, induration is decreasing, swelling has also improved - Back Exam Back Exam: NORMAL INSPECTION - Neurological Exam Neurological Exam: Alert, Awake, Oriented x3 - Psychiatric Exam Psychiatric exam: Normal Affect, Normal Mood - Skin Skin Exam: Dry, Intact, Normal Color, Warm Assessment and Plan - Assessment and Plan (Free Text) Assessment: 56yo male PMHx IDDM II, 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 Admitted to med/surg for R knee cellulitis. Plan: R knee cellulitis - R patella x-ray: soft tissue swelling without acute articular/osseous abnormality - RLE CT w/o contrast: soft tissue swelling without acute articular/osseous abnormality - U/S: negative for DVT in RLE - blood and urine cultures negative - wound culture : strep agalactiae group B staph aureus, repeat culture is positive for s. aureus - Initial VBG showed a lactate of 2.2, repeat lactate 0.9 - Cont warm compresses on affected area - Tylenol 650mg po q6 prn temp - Continue ultram for pain - ID: Dr Matute on board; since cultures are sensitive to staph aureus vanc no longer needed, now on ceftriaxone q 24. Patient had a fever of 102 overnight , most likely will resolve with local debridement. Continue to monitor. Patient has been afebrile since. - Ortho: Dr. Jesus on board performed local debridement, wound is tracking to right below the knee; packing was placed. Will continue to monitor wound. As per ortho may need to do surgical I&D if not healing well but will continue to monitor over the next few days as surgical opening is not the preferred plan. Will continue with IV antibiotics and local debridements. IDDM - Levemir 25U sc - RISS medium - Accucheck Diet: heart healthy mod consistent carb Fluids: discontinued GI ppx: Protonix 40mg po qd DVT ppx: Heparin 5000u sc q12 Pt seen and discussed in detail with Dr. Lane. Ciaran Kang, PGY1 <Matt Lane - Last Filed: 02/28/17 14:01> Objective - Vital Signs/Intake and Output Vital Signs (last 24 hours): Temp Pulse Resp BP Pulse Ox 98.8 F 80 18 133/80 98 02/28/17 07:50 02/28/17 07:50 02/28/17 07:50 02/28/17 07:50 02/28/17 07:50 Intake and Output: 02/28/17 02/28/17 06:59 18:59 Intake Total 480 Output Total 950 Balance -470 - Medications Medications: Current Medications Acetaminophen (Tylenol 325mg Tab) 650 mg PO Q6H PRN PRN Reason: Fever >100.4 F Last Admin: 02/24/17 16:16 Dose: 650 mg Albuterol/Ipratropium (Duoneb 3 Mg/0.5 Mg (3 Ml) Ud) 3 ml IH TIDRESP [facility] Last Admin: 02/28/17 13:12 Dose: 3 ml Heparin Sodium (Porcine) (Heparin) 5,000 units SC Q12 [facility] PRN Reason: Protocol Last Admin: 02/28/17 09:38 Dose: 5,000 units Ceftriaxone Sodium (Rocephin 2 Gm Ivpb) 2 gm in 100 mls @ 100 mls/hr IVPB DAILY [facility] PRN Reason: Protocol Stop: 03/03/17 14:23 Last Admin: 02/28/17 09:39 Dose: 100 mls/hr Insulin Detemir (Levemir) 25 unit SC HS [facility] Last Admin: 02/27/17 22:11 Dose: 25 unit Insulin Human Regular (Humulin R Med) 0 units SC AC [facility] PRN Reason: Protocol Last Admin: 02/28/17 12:25 Dose: 1 units Pantoprazole Sodium (Protonix Ec Tab) 40 mg PO 0600 [facility] Last Admin: 02/28/17 05:50 Dose: 40 mg Tramadol HCl (Ultram) 50 mg PO TID PRN PRN Reason: Pain, severe (8-10) Last Admin: 02/28/17 10:06 Dose: 50 mg - Labs Labs: 02/28/17 07:20 02/28/17 07:20 PT 13.9 SECONDS (9.4-12.5) H 02/22/17 05:00 INR 1.26 (0.93-1.08) H 02/22/17 05:00 APTT 33.8 Seconds (25.1-36.5) 02/22/17 05:00 Attending/Attestation - Attestation I have personally seen and examined this patient.: Yes I have fully participated in the care of the patient.: Yes I have reviewed all pertinent clinical information, including history, physical exam and plan: Yes Notes (Text): I have seen and examined the patient at bedside. Agree with the above note with the following additions/ exceptions: Briefly this is 56 year [place]ian male with history of IDDM 2, left 5th metatarsal amputation who came for evaluation of painful swelling of right knee s/p fall- Cellulitis. Ortho eval appreciated. Cellulitis is secondary to fall and carbuncle in septic knee. Swelling and erythema improved and pain is also significantly better. Dr Jesus did manual local bedside debridement yesterday. Continue rocephin. Repeat culture grew staph aureus. Continue rocephin. Continue Physical therapy. Upon discharge will follow up with Dr Botello. Dr Matt Lane
[2017-02-27] MEDS: Insulin Detemir 100 units/ml Vial (Levemir) SC SCH (22:11)
--- NOTE | 2017-02-27 23:30 | PN ---
SUBJECTIVE: The patient is in bed, in no acute distress, nontoxic. PHYSICAL EXAMINATION: VITAL SIGNS: Temperature is 98, blood pressure is 140/50, respiratory rate 16. HEENT: Unremarkable. NECK: Supple. LUNGS: Have decreased breath sounds .HEART: Normal S1 and S2. ABDOMEN: Soft. LABORATORY EXAMINATION: Reveals the patient's white count is 10,000, hemoglobin of 10, and platelets of 430. Sed rate is 120. Chemistries are noted with a BUN of 9 and creatinine of 0.6. Urinalysis is noted. Serology is noted. There is Staph aureus and group B strep, sensitive Staph aureus. The patient currently is on ceftriaxone 2 g daily. ASSESSMENT AND PLAN: This is a 56-year-old male with diabetes and right knee cellulitis, group B streptococcus, sensitive Staphylococcus aureus, on ceftriaxone. Continue aggressive physical therapy. Daniel Matute MD
--- NOTE | 2017-02-27 23:46 | PROCN ---
DATE: 02/27/2017 LOCATION: Room 573, bed 1. INDICATIONS: He is being treated for an abscess of his right knee prepatellar that extended distally by an inch and a half over the patellar tendon. DESCRIPTION OF PROCEDURE: We aggressively debrided as much as possible at bedside. We were able to remove some tissue that appeared to be bursal lining. There is no purulent material expressed today, just blood; so we took the old packing out, repacked today after we irrigated with normal saline and put in much less packing today, and hopefully it is starting to resolve the abscess, because there is no purulence, and there is less induration, less swelling and less pain, and more motion. So we have much less packing in today of a quarter inch, so we will see how it is tomorrow. We feel as though the antibiotics are working well. His blood sugar is much lower today than it was previously, being 114, and it was at 290 on 02/26/2017, and he feels better. So I will see him again tomorrow, hopefully we can stop the packing soon. Jerrod Jesus DO
[2017-02-28] MEDS: Pantoprazole 40 mg EC Tab PO SCH (05:50)
[2017-02-28] MEDS: Albuterol-Ipratrop 3 mg / 0.5 (3 ml) UD IH SCH ×3 (07:10→19:51)
[2017-02-28 08:13] LABS: BLOOD UREA NITROGEN 19 mg/dL (7-21); CALCIUM 9.5 mg/dL (8.4-10.5); GFR AFRICAN-AMERICAN > 60; GFR NON-AFRICAN AMERICAN > 60; MAGNESIUM 2.2 mg/dL (1.7-2.2)
[2017-02-28] MEDS: Insulin Reg-MEDIUM-Coverage SC SCH ×3 (08:13→16:24)
[2017-02-28 08:18] LABS: HEMOGLOBIN 11.3 g/dL (14.0-18.0); MEAN CELL VOLUME 85.5 fl (80.0-105.0); MEAN CORPUSCULAR HEMOGLOBIN 27.8 pg (25.0-35.0); MEAN CORPUSCULAR HGB CONC 32.6 g/dl (31.0-37.0); MEAN PLATELET VOLUME 10.4 fl (7.0-11.0); RBC 4.06 10^6/uL (3.5-6.1); RED CELL DISTRIBUTION WIDTH 14.2 % (11.5-14.5); WHITE BLOOD COUNT 8.5 10^3/ul (4.5-11.0)
[2017-02-28] MEDS: cefTRIAXone 2 GM IN NS 2 GM/100 ML BAG IVPB SCH (09:39)
--- NOTE | 2017-02-28 11:49 | PN ---
DATE: 02/28/2017 SUBJECTIVE: The patient is seen earlier in 573, bed 1. PHYSICAL EXAMINATION: VITAL SIGNS: Temperature is 98, blood pressure is 130/70, and respiratory rate of 16. HEENT: Unremarkable. NECK: Supple. LUNGS: Have decreased breath sounds. HEART: Normal S1, S2. ABDOMEN: Soft and nontender. LABORATORY DATA: Reveals white count of 8.5, hemoglobin of 11, and platelets of 601. Chemistries reveals BUN of and creatinine of 0.6. Procalcitonin is noted at 0.05. Urinalysis is noted and HIV is negative. Examination of the knee there is still purulent material oozing out of the packing and microbiology revealed the group B Strep sensitive Staphylococcus aureus. The patient is on ceftriaxone 2 g a day. ASSESSMENT AND PLAN: A 56-year-old male with diabetes mellitus, right knee cellulitis, group B Strep sensitive Staphylococcus aureus, on ceftriaxone. We will follow with you. Daniel Matute MD
--- NOTE | 2017-02-28 12:31 | CP.PCM.PN ---
<Perfecto Kang - Last Filed: 02/28/17 12:28> Subjective - Date & Time of Evaluation Date of Evaluation: 02/28/17 Time of Evaluation: 12:28 - Subjective Subjective: Medicine Progress Note Pt seen and examined at bedside. No acute overnight events. Pt states that pain is improved and has increased ROM in right knee. Pt denied CP, SOB, nausea, vomiting, diarrhea, abdominal pain, fever, chills, KANG, and dizziness. Objective - Vital Signs/Intake and Output Vital Signs (last 24 hours): Temp Pulse Resp BP Pulse Ox 98.8 F 80 18 133/80 98 02/28/17 07:50 02/28/17 07:50 02/28/17 07:50 02/28/17 07:50 02/28/17 07:50 Intake and Output: 02/28/17 02/28/17 06:59 18:59 Intake Total 480 Output Total 950 Balance -470 - Medications Medications: Current Medications Acetaminophen (Tylenol 325mg Tab) 650 mg PO Q6H PRN PRN Reason: Fever >100.4 F Last Admin: 02/24/17 16:16 Dose: 650 mg Albuterol/Ipratropium (Duoneb 3 Mg/0.5 Mg (3 Ml) Ud) 3 ml IH TIDRESP [facility] Last Admin: 02/28/17 07:10 Dose: 3 ml Heparin Sodium (Porcine) (Heparin) 5,000 units SC Q12 [facility] PRN Reason: Protocol Last Admin: 02/28/17 09:38 Dose: 5,000 units Ceftriaxone Sodium (Rocephin 2 Gm Ivpb) 2 gm in 100 mls @ 100 mls/hr IVPB DAILY [facility] PRN Reason: Protocol Stop: 03/03/17 14:23 Last Admin: 02/28/17 09:39 Dose: 100 mls/hr Insulin Detemir (Levemir) 25 unit SC HS [facility] Last Admin: 02/27/17 22:11 Dose: 25 unit Insulin Human Regular (Humulin R Med) 0 units SC AC [facility] PRN Reason: Protocol Last Admin: 02/28/17 12:25 Dose: 1 units Pantoprazole Sodium (Protonix Ec Tab) 40 mg PO 0600 [facility] Last Admin: 02/28/17 05:50 Dose: 40 mg Tramadol HCl (Ultram) 50 mg PO TID PRN PRN Reason: Pain, severe (8-10) Last Admin: 02/28/17 10:06 Dose: 50 mg - Labs Labs: 02/28/17 07:20 02/28/17 07:20 PT 13.9 SECONDS (9.4-12.5) H 02/22/17 05:00 INR 1.26 (0.93-1.08) H 02/22/17 05:00 APTT 33.8 Seconds (25.1-36.5) 02/22/17 05:00 - Constitutional Appears: No Acute Distress - Head Exam Head Exam: NORMAL INSPECTION - Eye Exam Eye Exam: Normal appearance - ENT Exam ENT Exam: Normal Exam - Neck Exam Neck Exam: Normal Inspection - Respiratory Exam Respiratory Exam: Clear to Ausculation Bilateral. absent: Accessory Muscle Use , Rales, Rhonchi, Wheezes, Respiratory Distress - Cardiovascular Exam Cardiovascular Exam: RRR, +S1, +S2. absent: Gallop, Rubs, Murmur - GI/Abdominal Exam GI & Abdominal Exam: Soft. absent: Distended, Guarding, Tenderness, Rebound - Extremities Exam Additional comments: decreased induration, erythema right knee. dressings changed. - Back Exam Back Exam: NORMAL INSPECTION - Neurological Exam Neurological Exam: Alert, Awake, Oriented x3 - Psychiatric Exam Psychiatric exam: Normal Affect, Normal Mood - Skin Skin Exam: Dry, Intact, Normal Color, Warm Assessment and Plan - Assessment and Plan (Free Text) Assessment: 56yo male PMHx IDDM II, 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 Admitted to med/surg for R knee cellulitis. Plan: R knee cellulitis - ID: Dr Matute on board Ceftriaxone per sensitivities - Ortho: Dr. Jesus on board Bedside debridement, possible surgical debridement if there is no improvement Daily dressing changes and wound care Cont warm compresses on affected area Cont to monitor- R patella x-ray: soft tissue swelling without acute articular/osseous abnormality - blood and urine cultures negative - wound culture : strep agalactiae group B staph aureus, repeat culture is positive for s. aureus - Tylenol 650mg po q6 prn temp - Continue ultram for pain - RLE CT w/o contrast: soft tissue swelling without acute articular/osseous abnormality - U/S: negative for DVT in RLE IDDM - Levemir 25U sc - RISS medium - Accucheck GI ppx/DVT PPx - Protonix - Heparin Pt seen and discussed in detail with Dr. Lane. Ciaran Kang, PGY1 <Matt Lane - Last Filed: 02/28/17 14:04> Objective - Vital Signs/Intake and Output Vital Signs (last 24 hours): Temp Pulse Resp BP Pulse Ox 98.8 F 80 18 133/80 98 02/28/17 07:50 02/28/17 07:50 02/28/17 07:50 02/28/17 07:50 02/28/17 07:50 Intake and Output: 02/28/17 02/28/17 06:59 18:59 Intake Total 480 Output Total 950 Balance -470 - Medications Medications: Current Medications Acetaminophen (Tylenol 325mg Tab) 650 mg PO Q6H PRN PRN Reason: Fever >100.4 F Last Admin: 02/24/17 16:16 Dose: 650 mg Albuterol/Ipratropium (Duoneb 3 Mg/0.5 Mg (3 Ml) Ud) 3 ml IH TIDRESP [facility] Last Admin: 02/28/17 13:12 Dose: 3 ml Heparin Sodium (Porcine) (Heparin) 5,000 units SC Q12 [facility] PRN Reason: Protocol Last Admin: 02/28/17 09:38 Dose: 5,000 units Ceftriaxone Sodium (Rocephin 2 Gm Ivpb) 2 gm in 100 mls @ 100 mls/hr IVPB DAILY [facility] PRN Reason: Protocol Stop: 03/03/17 14:23 Last Admin: 02/28/17 09:39 Dose: 100 mls/hr Insulin Detemir (Levemir) 25 unit SC HS [facility] Last Admin: 02/27/17 22:11 Dose: 25 unit Insulin Human Regular (Humulin R Med) 0 units SC AC [facility] PRN Reason: Protocol Last Admin: 02/28/17 12:25 Dose: 1 units Pantoprazole Sodium (Protonix Ec Tab) 40 mg PO 0600 [facility] Last Admin: 02/28/17 05:50 Dose: 40 mg Tramadol HCl (Ultram) 50 mg PO TID PRN PRN Reason: Pain, severe (8-10) Last Admin: 02/28/17 10:06 Dose: 50 mg - Labs Labs: 12/31/17 07:20 02/28/17 07:20 PT 13.9 SECONDS (9.4-12.5) H 02/22/17 05:00 INR 1.26 (0.93-1.08) H 02/22/17 05:00 APTT 33.8 Seconds (25.1-36.5) 02/22/17 05:00 Attending/Attestation - Attestation I have personally seen and examined this patient.: Yes I have fully participated in the care of the patient.: Yes I have reviewed all pertinent clinical information, including history, physical exam and plan: Yes Notes (Text): I have seen and examined the patient at bedside. Agree with the above note with the following additions/ exceptions: Briefly this is 56 year [place] male with history of IDDM 2, left 5th metatarsal amputation who came for evaluation of painful swelling of right knee s/p fall and developed Cellulitis. Ortho eval appreciated. Cellulitis is secondary to fall and carbuncle in septic knee. Swelling and erythema improved and pain is also significantly better. His ROM of left knee is better. Dr Jesus did manual local bedside debridement yesterday. Continue rocephin. Repeat culture grew staph aureus. Continue rocephin. Continue Physical therapy. Upon discharge will follow up with Dr Botello. Dr Matt Lane
[2017-02-28] MEDS: Insulin Detemir 100 units/ml Vial (Levemir) SC SCH (22:08)
[2017-03-01] MEDS: Pantoprazole 40 mg EC Tab PO SCH (06:28)
[2017-03-01] MEDS: Albuterol-Ipratrop 3 mg / 0.5 (3 ml) UD IH SCH ×3 (07:20→20:45)
[2017-03-01] MEDS: Insulin Reg-MEDIUM-Coverage SC SCH ×3 (08:01→16:34)
[2017-03-01 08:14] LABS: HEMOGLOBIN 11.3 g/dL (14.0-18.0); MEAN CELL VOLUME 85.7 fl (80.0-105.0); MEAN CORPUSCULAR HEMOGLOBIN 28.3 pg (25.0-35.0); MEAN PLATELET VOLUME 10.1 fl (7.0-11.0); RBC 3.99 10^6/uL (3.5-6.1); RED CELL DISTRIBUTION WIDTH 14.2 % (11.5-14.5); WHITE BLOOD COUNT 8.2 10^3/ul (4.5-11.0)
[2017-03-01 08:29] LABS: BLOOD UREA NITROGEN 18 mg/dL (7-21); CALCIUM 9.7 mg/dL (8.4-10.5); GFR AFRICAN-AMERICAN > 60; GFR NON-AFRICAN AMERICAN > 60; MAGNESIUM 2.1 mg/dL (1.7-2.2)
[2017-03-01] MEDS: cefTRIAXone 2 GM IN NS 2 GM/100 ML BAG IVPB SCH (10:38)
--- NOTE | 2017-03-01 12:57 | PN ---
DATE: 03/01/2017 SUBJECTIVE: The patient is seen this morning. He is doing much better. His leg is improving. PHYSICAL EXAMINATION: VITAL SIGNS: Temperature is 97, blood pressure is 120/70, respiratory rate 20, and heart rate of 73. HEENT: Unremarkable. NECK: Supple. LUNGS: Have decreased breath sounds. HEART: Normal S1, S2. ABDOMEN: Soft. LABORATORY DATA: Reveals white count of 8.2, hemoglobin of 11, and platelets of 630. BUN of 18 and creatinine of 0.6. Procalcitonin is less than 0.05. Urinalysis is noted. HIV is negative. Microbiology reveals there is group B Strep and sensitive Staphylococcus aureus. Another culture is sensitive Staphylococcus aureus. ASSESSMENT AND PLAN: A 56-year-old male with diabetes mellitus, right knee group B Strep sensitive Staphylococcus aureus cellulitis after a fall on his knee, may be able to switch to p.o. Keflex to complete therapy as outpatient. The patient's symptoms are greatly improved. The patient will need close followup with Orthopedics and primary doctor. Upon discharge, may be able to use p.o. Keflex, would treat for prolonged period of time or p.o. Augmentin. Daniel Matute MD
--- NOTE | 2017-03-01 13:31 | PROCN ---
DATE: 02/28/2017 This is a 56-year-old male. Right knee abscess, prepatellar. We took out the old packing from yesterday's. Much less drainage of closer to serosanguineous at this time. We had to remove the packing. We probed the wound again and washed out with normal saline and repacked it. It seems much more less intense and the infection appears to be clinically improving. So, I packed it open again because it is still quite deep, about an inch down distally. So, I want to keep it open, so I let it drain of serosanguineous fluid and we will wait for the culture to make sure the culture did not change. He appears to be on the right antibiotics and he feels less pain. He can move up more and as I said before, the blood sugar is not as high as before. So, wait for the new culture to return and I will do daily dressing changes and possible packing. Jerrod Jesus DO
--- NOTE | 2017-03-01 14:51 | CP.PCM.PN ---
<Perfecto Kang - Last Filed: 03/01/17 14:45> Subjective - Date & Time of Evaluation Date of Evaluation: 03/01/17 Time of Evaluation: 14:45 - Subjective Subjective: Medicine Progress Note Pt seen and examined at bedside. No acute overnight events. Pt states that pain is improved and is able to bend right knee more today. Pt denies CP, SOB, nausea , vomiting, diarrhea, abdominal pain, fever, chills, KANG, or dizziness. Objective - Vital Signs/Intake and Output Vital Signs (last 24 hours): Temp Pulse Resp BP Pulse Ox 97.3 F L 73 20 121/73 95 03/01/17 08:00 03/01/17 08:00 03/01/17 08:00 03/01/17 08:00 03/01/17 08:00 Intake and Output: 03/01/17 03/01/17 06:59 18:59 Intake Total 780 480 Output Total 600 300 Balance 180 180 - Medications Medications: Current Medications Acetaminophen (Tylenol 325mg Tab) 650 mg PO Q6H PRN PRN Reason: Fever >100.4 F Last Admin: 02/24/17 16:16 Dose: 650 mg Albuterol/Ipratropium (Duoneb 3 Mg/0.5 Mg (3 Ml) Ud) 3 ml IH TIDRESP [facility] Last Admin: 03/01/17 13:08 Dose: 3 ml Heparin Sodium (Porcine) (Heparin) 5,000 units SC Q12 [facility] PRN Reason: Protocol Last Admin: 03/01/17 10:39 Dose: 5,000 units Ceftriaxone Sodium (Rocephin 2 Gm Ivpb) 2 gm in 100 mls @ 100 mls/hr IVPB DAILY [facility] PRN Reason: Protocol Stop: 03/03/17 14:23 Last Admin: 03/01/17 10:38 Dose: 100 mls/hr Ibuprofen (Motrin Tab) 400 mg PO Q6H PRN PRN Reason: Pain, Mild (1-3) Insulin Detemir (Levemir) 25 unit SC HS [facility] Last Admin: 02/28/17 22:08 Dose: 25 unit Insulin Human Regular (Humulin R Med) 0 units SC AC [facility] PRN Reason: Protocol Last Admin: 03/01/17 12:18 Dose: 3 units Pantoprazole Sodium (Protonix Ec Tab) 40 mg PO 0600 [facility] Last Admin: 03/01/17 06:28 Dose: 40 mg Tramadol HCl (Ultram) 50 mg PO TID PRN PRN Reason: Pain, severe (8-10) Last Admin: 02/28/17 10:06 Dose: 50 mg - Labs Labs: 03/01/17 07:30 03/01/17 07:30 PT 13.9 SECONDS (9.4-12.5) H 02/22/17 05:00 INR 1.26 (0.93-1.08) H 02/22/17 05:00 APTT 33.8 Seconds (25.1-36.5) 02/22/17 05:00 - Constitutional Appears: No Acute Distress - Head Exam Head Exam: NORMAL INSPECTION - Eye Exam Eye Exam: Normal appearance - ENT Exam ENT Exam: Normal Exam - Neck Exam Neck Exam: Normal Inspection - Respiratory Exam Respiratory Exam: Clear to Ausculation Bilateral. absent: Rales, Rhonchi, Wheezes - Cardiovascular Exam Cardiovascular Exam: RRR, +S1, +S2. absent: Gallop, Rubs, Murmur - GI/Abdominal Exam GI & Abdominal Exam: Soft. absent: Distended, Tenderness, Rebound - Extremities Exam Additional comments: decreased erythema and tenderness right knee. no purulent discharge. dressings clean, dry and intact. 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 Admitted to med/surg for R knee cellulitis. Plan: R knee cellulitis - Plan for AGUEDA tomorrow, f/u with case management - ID: Dr Matute on board Ceftriaxone per sensitivities - Ortho: Dr. Jesus on board Bedside debridement, possible surgical debridement if there is no improvement Daily dressing changes and wound care Cont warm compresses on affected area Cont to monitor- R patella x-ray: soft tissue swelling without acute articular/osseous abnormality - blood and urine cultures negative - wound culture : strep agalactiae group B staph aureus, repeat culture is positive for s. aureus - Tylenol 650mg po q6 prn temp - Continue motrin, ultram for pain - RLE CT w/o contrast: soft tissue swelling without acute articular/osseous abnormality - U/S: negative for DVT in RLE - Cont PT IDDM - Levemir 25U sc - RISS medium - Accucheck GI ppx/DVT PPx - Protonix - Heparin Pt seen and discussed in detail with Dr. Lane. Ciaran Kang, PGY1 <Matt Lane - Last Filed: 03/01/17 15:05> Objective - Vital Signs/Intake and Output Vital Signs (last 24 hours): Temp Pulse Resp BP Pulse Ox 97.3 F L 73 20 121/73 95 03/01/17 08:00 03/01/17 08:00 03/01/17 08:00 03/01/17 08:00 03/01/17 08:00 Intake and Output: 03/01/17 03/01/17 06:59 18:59 Intake Total 780 480 Output Total 600 300 Balance 180 180 - Medications Medications: Current Medications Acetaminophen (Tylenol 325mg Tab) 650 mg PO Q6H PRN PRN Reason: Fever >100.4 F Last Admin: 02/24/17 16:16 Dose: 650 mg Albuterol/Ipratropium (Duoneb 3 Mg/0.5 Mg (3 Ml) Ud) 3 ml IH TIDRESP [facility] Last Admin: 03/01/17 13:08 Dose: 3 ml Heparin Sodium (Porcine) (Heparin) 5,000 units SC Q12 [facility] PRN Reason: Protocol Last Admin: 03/01/17 10:39 Dose: 5,000 units Ceftriaxone Sodium (Rocephin 2 Gm Ivpb) 2 gm in 100 mls @ 100 mls/hr IVPB DAILY [facility] PRN Reason: Protocol Stop: 03/03/17 14:23 Last Admin: 03/01/17 10:38 Dose: 100 mls/hr Ibuprofen (Motrin Tab) 400 mg PO Q6H PRN PRN Reason: Pain, Mild (1-3) Insulin Detemir (Levemir) 25 unit SC HS [facility] Last Admin: 02/28/17 22:08 Dose: 25 unit Insulin Human Regular (Humulin R Med) 0 units SC AC [facility] PRN Reason: Protocol Last Admin: 03/01/17 12:18 Dose: 3 units Pantoprazole Sodium (Protonix Ec Tab) 40 mg PO 0600 [facility] Last Admin: 03/01/17 06:28 Dose: 40 mg Tramadol HCl (Ultram) 50 mg PO TID PRN PRN Reason: Pain, severe (8-10) Last Admin: 02/28/17 10:06 Dose: 50 mg - Labs Labs: 03/01/17 07:30 03/01/17 07:30 PT 13.9 SECONDS (9.4-12.5) H 02/22/17 05:00 INR 1.26 (0.93-1.08) H 02/22/17 05:00 APTT 33.8 Seconds (25.1-36.5) 02/22/17 05:00 Attending/Attestation - Attestation I have personally seen and examined this patient.: Yes I have fully participated in the care of the patient.: Yes I have reviewed all pertinent clinical information, including history, physical exam and plan: Yes Notes (Text): I have seen and examined the patient at bedside. Agree with the above note with the following additions/ exceptions: Briefly this is 56 year [place] male with history of IDDM 2, left 5th metatarsal amputation who came for evaluation of painful swelling of right knee s/p fall and developed Cellulitis. Ortho eval appreciated. Cellulitis is secondary to fall and carbuncle in septic knee. Swelling and erythema improved and pain is also significantly better. His ROM of left knee is better. Dr Jesus did manual local bedside debridement 2 days ago. Continue rocephin. Repeat culture grew staph aureus. Will repeat Physical therapy evaluation tomorrow. Will plan for dc tomorrow. Upon discharge will follow up with Dr Botello. Dr Matt Lane
[2017-03-01] MEDS ORDERED: Insulin Detemir 100 units/ml Vial (Levemir) SC SCH (16:21)
--- NOTE | 2017-03-02 00:48 | PROCN ---
DATE: PROCEDURE: Irrigation and debridement of the right prepatellar wound. He has serosanguineous drainage, no evidence of purulence. No evidence of bursal tissue exposed. The cavity is much smaller. We irrigated with normal saline and probed it with Q-tip and this did go down by an inch, which was half what it used to be. We just packed it with a little bit of more quarter-inch packing and hopefully this will be one of the last packing episodes, and he could continue on the antibiotics, but it looks much better. It is neither swollen nor is it tender and with less induration. Hopefully, we could stop the packing after this for tomorrow's procedure. Jerrod Jesus DO
[2017-03-02] MEDS: Pantoprazole 40 mg EC Tab PO SCH (06:45)
[2017-03-02 07:05] LABS: HEMOGLOBIN 12.2 g/dL (14.0-18.0); MEAN CELL VOLUME 85.9 fl (80.0-105.0); MEAN CORPUSCULAR HEMOGLOBIN 28.2 pg (25.0-35.0); MEAN CORPUSCULAR HGB CONC 32.8 g/dl (31.0-37.0); MEAN PLATELET VOLUME 9.7 fl (7.0-11.0); RBC 4.33 10^6/uL (3.5-6.1); RED CELL DISTRIBUTION WIDTH 14.1 % (11.5-14.5); WHITE BLOOD COUNT 7.3 10^3/ul (4.5-11.0)
[2017-03-02 07:18] LABS: BLOOD UREA NITROGEN 21 mg/dL (7-21); CALCIUM 10.4 mg/dL (8.4-10.5); GFR AFRICAN-AMERICAN > 60; GFR NON-AFRICAN AMERICAN > 60; MAGNESIUM 2.2 mg/dL (1.7-2.2)
[2017-03-02] MEDS: Insulin Reg-MEDIUM-Coverage SC SCH ×3 (07:30→17:04)
[2017-03-02] MEDS: Albuterol-Ipratrop 3 mg / 0.5 (3 ml) UD IH SCH ×2 (07:34→14:45)
--- NOTE | 2017-03-02 10:08 | PN ---
DATE: 03/02/2017 The patient is doing quite well. No complaint of pains. Knee feels normal. He starting to move it more. The previous packing was removed, this revealed no drainage or evidence of serous drainage; so we will send him home today on p.o. antibiotics ordered by the medical team and I will follow him p.r.n as needed. Final diagnosis was deep abscess, prepatellar bursa, right leg; treated with IV antibiotics, multiple irrigation and debridements and wound packing and final consolidation of the abscess. Jerrod Jesus DO
[2017-03-02] MEDS: cefTRIAXone 2 GM IN NS 2 GM/100 ML BAG IVPB SCH (10:50)
--- NOTE | 2017-03-02 14:22 | CP.PCM.PN ---
Subjective - Date & Time of Evaluation Date of Evaluation: 03/02/17 Time of Evaluation: 06:30 Objective - Vital Signs/Intake and Output Vital Signs (last 24 hours): Temp Pulse Resp BP Pulse Ox 97.7 F 87 20 128/83 96 03/02/17 07:00 03/02/17 07:00 03/02/17 07:00 03/02/17 07:00 03/02/17 07:00 Intake and Output: 03/02/17 03/02/17 06:59 18:59 Intake Total 840 Output Total 600 Balance 240 - Medications Medications: Current Medications Acetaminophen (Tylenol 325mg Tab) 650 mg PO Q6H PRN PRN Reason: Fever >100.4 F Last Admin: 02/24/17 16:16 Dose: 650 mg Albuterol/Ipratropium (Duoneb 3 Mg/0.5 Mg (3 Ml) Ud) 3 ml IH TIDRESP [facility] Last Admin: 03/02/17 07:34 Dose: 3 ml Heparin Sodium (Porcine) (Heparin) 5,000 units SC Q12 [facility] PRN Reason: Protocol Last Admin: 03/02/17 10:51 Dose: 5,000 units Ceftriaxone Sodium (Rocephin 2 Gm Ivpb) 2 gm in 100 mls @ 100 mls/hr IVPB DAILY [facility] PRN Reason: Protocol Stop: 03/03/17 14:23 Last Admin: 03/02/17 10:50 Dose: 100 mls/hr Ibuprofen (Motrin Tab) 400 mg PO Q6H PRN PRN Reason: Pain, Mild (1-3) Insulin Detemir (Levemir) 30 unit SC HS [facility] Last Admin: 03/01/17 22:13 Dose: 30 unit Insulin Human Regular (Humulin R Med) 0 units SC AC [facility] PRN Reason: Protocol Last Admin: 03/02/17 12:02 Dose: 5 units Pantoprazole Sodium (Protonix Ec Tab) 40 mg PO 0600 [facility] Last Admin: 03/02/17 06:45 Dose: 40 mg Tramadol HCl (Ultram) 50 mg PO TID PRN PRN Reason: Pain, severe (8-10) Last Admin: 02/28/17 10:06 Dose: 50 mg - Labs Labs: 03/02/17 06:45 03/02/17 06:45 PT 13.9 SECONDS (9.4-12.5) H 02/22/17 05:00 INR 1.26 (0.93-1.08) H 02/22/17 05:00 APTT 33.8 Seconds (25.1-36.5) 02/22/17 05:00 - Constitutional Appears: Non-toxic, No Acute Distress - Head Exam Head Exam: ATRAUMATIC, NORMAL INSPECTION, NORMOCEPHALIC - ENT Exam ENT Exam: Mucous Membranes Moist, Normal Exam - Neck Exam Neck Exam: Normal Inspection - Respiratory Exam Respiratory Exam: Clear to Ausculation Bilateral, NORMAL BREATHING PATTERN - Cardiovascular Exam Cardiovascular Exam: Tachycardia, Irregular Rhythm. absent: Clicks, Murmur - GI/Abdominal Exam GI & Abdominal Exam: Soft, Normal Bowel Sounds. absent: Rigid, Tenderness - Extremities Exam Extremities Exam: Normal Inspection. absent: Calf Tenderness, Joint Swelling, Pedal Edema - Neurological Exam Neurological Exam: Alert, Awake, Oriented x3 - Psychiatric Exam Psychiatric exam: Normal Affect, Normal Mood - Skin Skin Exam: Intact, Normal Color, Warm
[2017-03-02 16:44] VITALS: BP 118/75; PULSE 85; RESP 18; TEMP 98.2; O2SAT 97
--- NOTE | 2017-03-02 19:41 | CP.PCM.PN ---
Subjective - Date & Time of Evaluation Date of Evaluation: 03/02/17 Time of Evaluation: 12:00 - Subjective Subjective: Comfortable, not in distress, no fevers, less pain on the right knee. Objective - Vital Signs/Intake and Output Vital Signs (last 24 hours): Temp Pulse Resp BP Pulse Ox 98.2 F 85 18 118/75 97 03/02/17 16:43 03/02/17 16:43 03/02/17 16:43 03/02/17 16:43 03/02/17 16:43 Intake and Output: 03/02/17 03/03/17 18:59 06:59 Intake Total 720 Balance 720 - Medications Medications: Current Medications Acetaminophen (Tylenol 325mg Tab) 650 mg PO Q6H PRN PRN Reason: Fever >100.4 F Last Admin: 02/24/17 16:16 Dose: 650 mg Albuterol/Ipratropium (Duoneb 3 Mg/0.5 Mg (3 Ml) Ud) 3 ml IH TIDRESP [facility] Last Admin: 03/02/17 14:45 Dose: Not Given Heparin Sodium (Porcine) (Heparin) 5,000 units SC Q12 [facility] PRN Reason: Protocol Last Admin: 03/02/17 10:51 Dose: 5,000 units Ceftriaxone Sodium (Rocephin 2 Gm Ivpb) 2 gm in 100 mls @ 100 mls/hr IVPB DAILY [facility] PRN Reason: Protocol Stop: 03/03/17 14:23 Last Admin: 03/02/17 10:50 Dose: 100 mls/hr Ibuprofen (Motrin Tab) 400 mg PO Q6H PRN PRN Reason: Pain, Mild (1-3) Insulin Detemir (Levemir) 30 unit SC HS [facility] Last Admin: 03/01/17 22:13 Dose: 30 unit Insulin Human Regular (Humulin R Med) 0 units SC AC [facility] PRN Reason: Protocol Last Admin: 03/02/17 17:04 Dose: 3 units Pantoprazole Sodium (Protonix Ec Tab) 40 mg PO 0600 [facility] Last Admin: 03/02/17 06:45 Dose: 40 mg Tramadol HCl (Ultram) 50 mg PO TID PRN PRN Reason: Pain, severe (8-10) Last Admin: 02/28/17 10:06 Dose: 50 mg - Labs Labs: 03/02/17 06:45 03/02/17 06:45 PT 13.9 SECONDS (9.4-12.5) H 02/22/17 05:00 INR 1.26 (0.93-1.08) H 02/22/17 05:00 APTT 33.8 Seconds (25.1-36.5) 02/22/17 05:00 - Constitutional Appears: Non-toxic - Head Exam Head Exam: NORMAL INSPECTION - ENT Exam ENT Exam: Mucous Membranes Moist - Neck Exam Neck Exam: absent: Meningismus - Respiratory Exam Respiratory Exam: Decreased Breath Sounds - Cardiovascular Exam Cardiovascular Exam: +S1, +S2 - GI/Abdominal Exam GI & Abdominal Exam: Soft. absent: Tenderness - Extremities Exam Additional comments: right knee with dressings in place Assessment and Plan - Assessment and Plan (Free Text) Plan: Assessment right knee skin and soft tissue infection with group B Strep and MSSA DM Plan Continue Ceftriaxone and can switch to PO Keflex when ready for discharge
--- NOTE | 2017-03-03 06:31 | CP.PCM.DIS ---
Provider - Provider Date of Admission: 02/21/17 13:37 Attending physician: Matt Lane MD Primary care physician: Srea Botello MD Consults: Orthopedic Surgery: Dr. Jesus Infectious Disease: Dr. Matute Time Spent in preparation of Discharge (in minutes): 45 Diagnosis - Discharge Diagnosis (1) Diabetes mellitus Status: Chronic Priority: High (2) Abrasion Status: Acute Priority: High (3) Cellulitis of knee, right Status: Acute Priority: High Hospital Course - Lab Results Lab Results: Micro Results 02/28/17 12:04 Knee - Right Gram Stain - Final 02/28/17 12:04 Knee - Right Wound Culture - Preliminary Staphylococcus Aureus 02/23/17 07:46 Other: Please Indicate Gram Stain - Final 02/23/17 07:46 Other: Please Indicate Body Fluid Culture - Final Staphylococcus Aureus 02/21/17 14:00 Urine Urine Culture - Final No Growth (<1,000 CFU/ML) Most Recent Lab Values WBC 7.3 10^3/ul (4.5-11.0) 03/02/17 06:45 RBC 4.33 10^6/uL (3.5-6.1) 03/02/17 06:45 Hgb 12.2 g/dL (14.0-18.0) L 03/02/17 06:45 Hct 37.2 % (42.0-52.0) L 03/02/17 06:45 MCV 85.9 fl (80.0-105.0) 03/02/17 06:45 MCH 28.2 pg (25.0-35.0) 03/02/17 06:45 MCHC 32.8 g/dl (31.0-37.0) 03/02/17 06:45 RDW 14.1 % (11.5-14.5) 03/02/17 06:45 Plt Count 657 10^3/uL (120.0-450.0) H 03/02/17 06:45 MPV 9.7 fl (7.0-11.0) 03/02/17 06:45 Gran % 69.7 % (50.0-68.0) H 02/26/17 07:30 Lymph % (Auto) 18.9 % (22.0-35.0) L 02/26/17 07:30 [place] % (Auto) 8.9 % (1.0-6.0) H 02/26/17 07:30 Eos % (Auto) 2.3 % (1.5-5.0) 02/26/17 07:30 Baso % (Auto) 0.2 % (0.0-3.0) 02/26/17 07:30 Gran # 7.09 (1.4-6.5) H 02/26/17 07:30 Lymph # 1.9 (1.2-3.4) 02/26/17 07:30 [place] # 0.9 (0.1-0.6) H 02/26/17 07:30 Eos # 0.2 (0.0-0.7) 02/26/17 07:30 Baso # 0.02 K/mm3 (0.0-2.0) 02/26/17 07:30 ESR 120 mm/hr (0.00-15.0) H 02/22/17 06:45 PT 13.9 SECONDS (9.4-12.5) H 02/22/17 05:00 INR 1.26 (0.93-1.08) H 02/22/17 05:00 APTT 33.8 Seconds (25.1-36.5) 02/22/17 05:00 pO2 43 mm/Hg (30-55) 02/21/17 14:50 VBG pH 7.43 (7.32-7.43) 02/21/17 14:50 VBG pCO2 40.0 (40-60) 02/21/17 14:50 VBG HCO3 26.5 mmol/l (21-28) 02/21/17 14:50 VBG Total CO2 27.7 mmol.L (22-28) 02/21/17 14:50 VBG O2 Sat (Calc) 86.2 % (40-65) H 02/21/17 14:50 VBG Base Excess 2.0 mmol/L (0.0-2.0) 02/21/17 14:50 VBG Potassium 4.1 mmol/L (3.6-5.2) 02/21/17 14:50 Sodium 139.0 mmol/L (132-148) 02/21/17 14:50 Chloride 109.0 mmol/L (98-107) H 02/21/17 14:50 Glucose 172 mg/dl (75-110) H 02/21/17 14:50 Lactate 0.9 mmol/L (0.7-2.1) 02/21/17 14:50 FiO2 21.0 % 02/21/17 14:50 Sodium 142 mmol/L (132-148) 03/02/17 06:45 Potassium 5.1 mmol/L (3.6-5.0) H 03/02/17 06:45 Chloride 100 mmol/L (98-107) 03/02/17 06:45 Carbon Dioxide 29 mmol/L (21-33) 03/02/17 06:45 Anion Gap 17 (10-20) 03/02/17 06:45 BUN 21 mg/dL (7-21) 03/02/17 06:45 Creatinine 0.8 mg/dl (0.8-1.5) 03/02/17 06:45 Est GFR ( Amer) > 60 03/02/17 06:45 Est GFR (Non-Af Amer) > 60 03/02/17 06:45 POC Glucose (mg/dL) 213 mg/dL (65-110) H 03/02/17 16:09 Random Glucose 138 mg/dL (70-110) H 03/02/17 06:45 Uric Acid 2.6 mg/dL (3.5-8.5) L 02/21/17 11:10 Calcium 10.4 mg/dL (8.4-10.5) 03/02/17 06:45 Phosphorus 3.7 mg/dL (2.5-4.5) 03/02/17 06:45 Magnesium 2.2 mg/dL (1.7-2.2) 03/02/17 06:45 Total Bilirubin 0.4 mg/dL (0.2-1.3) 02/26/17 07:30 AST 30 U/L (17-59) 02/26/17 07:30 ALT 45 U/L (7-56) 02/26/17 07:30 Alkaline Phosphatase 617 U/L (38-126) H D 02/26/17 07:30 C-React Prot High Sens > 15.00 mg/L (1.00-3.00) H 02/21/17 11:10 Total Protein 7.5 g/dL (5.8-8.3) 02/26/17 07:30 Albumin 3.3 g/dL (3.0-4.8) 02/26/17 07:30 Globulin 4.2 gm/dL 02/26/17 07:30 Albumin/Globulin Ratio 0.8 (1.1-1.8) L 02/26/17 07:30 Procalcitonin < 0.05 NG/ML (0.19-0.49) L 02/22/17 06:45 Venous Blood Potassium 4.1 mmol/L (3.6-5.2) 02/21/17 14:50 Urine Color Yellow (YELLOW) 02/21/17 14:00 Urine Appearance Clear (CLEAR) 02/21/17 14:00 Urine pH 6.0 (4.7-8.0) 02/21/17 14:00 Ur Specific [employer] 1.020 (1.005-1.035) 02/21/17 14:00 Urine Protein Negative mg/dL (<30 mg/dL) 02/21/17 14:00 Urine Glucose (UA) >=1000 mg/dL (NEGATIVE) 02/21/17 14:00 Urine Ketones Negative mg/dL (NEGATIVE) 02/21/17 14:00 Urine Blood Negative (NEGATIVE) 02/21/17 14:00 Urine Nitrate Negative (NEGATIVE) 02/21/17 14:00 Urine Bilirubin Negative (NEGATIVE) 02/21/17 14:00 Urine Urobilinogen 2.0 E.U./dL (<1 E.U./dL) H 02/21/17 14:00 Ur Leukocyte Esterase Negative Edgar/uL (NEGATIVE) 02/21/17 14:00 HIV 1&2 Ag/Ab, 4th Gen Nonreactive (Nonreactive) 02/22/17 06:45 - Hospital Course Hospital Course: Patient is a 56 year old male with a past medical history of IDDM who presents with complaints of right knee pain after falling. Patient states that three days ago in the afternoon he was moving around in the attic in his brother 's house where he lives just putting things away and folding clothes and made the wrong turn which resulted in him falling and hitting his knee on the floor. Orthopedic surgery and Infectious disease were consulted. Patient was found to have cellulitis of the right knee which required daily local debridements. Orthopedic surgery performed local debridements daily which helped the wound heal. Wound cultures revealed MSSA, patient was placed on ceftriaxone which was the appropriate antibiotics. Patient received daily physical therapy which contributed to healing as well. Discharge Exam - Head Exam Head Exam: NORMAL INSPECTION Discharge Plan - Discharge Medications Prescriptions: Cephalexin [Keflex] 500 mg PO Q12 7 Days #14 capsule Ibuprofen [Motrin Tab] 400 mg PO Q6H PRN #16 tab PRN Reason: Pain, Mild (1-3) traMADol [Ultram] 50 mg PO TID PRN #10 tab PRN Reason: Pain, Severe (8-10) - Follow Up Plan Condition: STABLE Disposition: HOME/ ROUTINE Instructions: Cellulitis (DC), Acute Wound Care (DC), Abrasion (GEN), Diabetic Hyperglycemia (DC) Additional Instructions: 1. Please follow up with PMD Dr. Botello within 3-5 days regarding hospital visit 2. Please fill and take prescriptions as instructed 3. Please make a follow up appointment with Dr. Jesus in 10 days for follow up 4. Do not hesitate to return to the emergency department if symptoms worsen or return. Referrals: Sera Botello MD [Primary Care Provider] - Jerrod Jesus DO [Staff Provider] -
== END 2017-03-02 21:50 | disposition home or self-care (01) | DRG 563 ==
LOC: ED 10:35 → ERH 13:37 → 5RSO 15:25
PROVIDERS: ADMIT Internal Medicine; ATTEND Hospitalist
PROC: 3E0234Z Introduction of Serum, Toxoid and Vaccine into Muscle, Percutaneous Approach (ICD-10-PCS; 2017-02-21)
PROC: 3E10X8Z Irrigation of Skin and Mucous Membranes using Irrigating Substance (ICD-10-PCS; 2017-02-25)
PROC: 3E10X8Z Irrigation of Skin and Mucous Membranes using Irrigating Substance (ICD-10-PCS; 2017-02-26)
PROC: 0HDKXZZ Extraction of Right Lower Leg Skin, External Approach (ICD-10-PCS; principal; 2017-02-27)
PROC: 3E10X8Z Irrigation of Skin and Mucous Membranes using Irrigating Substance (ICD-10-PCS; 2017-02-28)
PROC: 3E10X8Z Irrigation of Skin and Mucous Membranes using Irrigating Substance (ICD-10-PCS; 2017-03-01)
DX: L03.115 Cellulitis of right lower limb (principal); M00.9 Pyogenic arthritis, unspecified; L02.93 Carbuncle, unspecified; E10.9 Type 1 diabetes mellitus without complications; A49.01 Methicillin susceptible Staphylococcus aureus infection, unspecified site; B95.1 Streptococcus, group B, as the cause of diseases classified elsewhere; W19.XXXA Unspecified fall, initial encounter; R40.2412 Glasgow coma scale score 13-15, at arrival to emergency department; S80.219A Abrasion, unspecified knee, initial encounter; Z79.4 Long term (current) use of insulin; L02.415 Cutaneous abscess of right lower limb; Z89.412 Acquired absence of left great toe; Z83.3 Family history of diabetes mellitus; Z23 Encounter for immunization